=== PATIENT | male | born 1950 | race Caucasian/White ===

== ENCOUNTER 2018-08-14 12:30 | Outpatient (CLI) | payer MEDICARE ==
[~2018-08-14] VITALS: Ht 185.4 cm; Wt 89.8 kg
[~2018-08-14 12:30] MED LIST: AMIT25TA9 PO; AMLO10TA82 PO; AMT10T PO; ATRV10T PO; B/P; HYDR1TAB PO; LSNP10T PO
[2018-08-14] MEDS ORDERED: AMLO10TA6 PO (12:34)
[2018-08-14] MEDS ORDERED: POTA10TA10 PO (12:34)
[2018-08-14] MEDS ORDERED: ROSU5TAB PO (12:34)
== END 2018-08-14 12:35 | disposition home or self-care (01) ==
LOC: PREOP 12:30
PROVIDERS: ATTEND Surgery
DX: Z01.818 Encounter for other preprocedural examination (principal)

== ENCOUNTER 2018-08-20 07:56 | Day surgery (SDC) | payer MEDICARE, OTHER ==
[~2018-08-20] VITALS: Ht 185.4 cm; Wt 89.8 kg
[~2018-08-20 07:56] MED LIST changes: +AMLO10TA6 PO; +POTA10TA10 PO; +ROSU5TAB PO
[2018-08-20] MEDS ORDERED: LACTATED RINGERS 1,000 ML IV STA (08:11)
[2018-08-20 08:25] VITALS: BP 166/109
--- NOTE | 2018-08-20 08:40 | Progress Note-Pre Operative ---
Pre-Operative Progress Note H&P Reviewed The H&P was reviewed, patient examined and no changes noted. Date Seen by Provider: Aug 20, 2018 Time Seen by Provider: 08:39 Date H&P Reviewed: Aug 20, 2018 Time H&P Reviewed: 08:39 Pre-Operative Diagnosis: positive cologuard test VELASQUEZ VARGAS DO Aug 20, 2018 08:40
[2018-08-20] MEDS ORDERED: PROPOFOL INJECTION 50 ML IV ONE (09:17)
[2018-08-20] MEDS ORDERED: MIDAZOLAM 2 MG/2 ML (VERSED) VIAL ONE (09:18)
--- NOTE | 2018-08-20 10:14 | Progress Note-Post Operative ---
Post-Operative Progess Note Surgeon (s)/System Specialist (s) Surgeon VELASQUEZ VARGAS DO System Specialist: na Pre-Operative Diagnosis positive cologuard test Post-Operative Diagnosis cecal mass, colon polyps Procedure & Operative Findings Date of Procedure 08/20/18 Procedure Performed/Findings colonoscopy c cold bx's cecal mass, hot bx polypectomy x 2 ascending colon, snare polypectomy x 1 sigmoid Anesthesia Type per E LEARNING SPECIALIST Estimated Blood Loss Estimated blood loss (mL): none Specimens/Packing Specimens Removed cecal mass x3 pieces (cold bx) ascending colon polyps x2 (hot bx) sigmoid colon polyp x2 pieces (snare bx) VELASQUEZ VARGAS DO Aug 20, 2018 10:14
[2018-08-20 10:15] VITALS: BP 155/77
--- NOTE | 2018-08-20 10:18 | Discharge Inst-Simple/Standard ---
Discharge Inst-Standard Patient Instructions/Follow Up Plan of Care/Instructions/FU: 2 weeks Trini Activity as Tolerated: Yes Discharge Diet: Regular Diet VELASQUEZ VARGAS DO Aug 20, 2018 10:18
[2018-08-20 10:45] VITALS: BP 155/88
--- NOTE | 2018-08-20 13:06 | Anesthesia-General Post-Op ---
MAC Patient Condition Mental Status/LOC: Same as Preop Cardiovascular: Satisfactory Nausea/Vomiting: Absent Respiratory: Satisfactory Pain: Controlled Complications: Absent Post Op Complications Complications None Follow Up Care/Instructions Patient Instructions None needed. Anesthesiology Discharge Order Discharge Order Patient is doing well, no complaints, stable vital signs, no apparent adverse anesthesia problems. No complications reported per nursing. CHRISTIAN DEL CID CRNA Aug 20, 2018 13:06
--- NOTE | 2018-08-20 14:48 | OPERATIVE REPORT ---
DATE OF SERVICE: 08/20/2018 PREOPERATIVE DIAGNOSIS: Positive Cologuard test. POSTOPERATIVE DIAGNOSES: Cecal mass and colon polyps. PROCEDURES: Colonoscopy with cold biopsy of cecal mass, hot biopsy polypectomy x 2 ascending colon and snare polypectomy x 1 sigmoid colon. ANESTHESIA: Per PROFESSOR OF MUSIC. SURGEON: Velasquez Feliz DO. ESTIMATED BLOOD LOSS: None. COMPLICATIONS: None. INDICATIONS: The patient is a 68-year-old male with positive Cologuard test. He was explained risks and benefits of procedure and wished to proceed with procedure. Consent was signed in chart. DESCRIPTION OF PROCEDURE: The patient was taken to the endoscopy suite and placed in a left lateral recumbent position. Timeout was performed. Digital rectal exam was performed. There were no palpable polyps, masses or ulcerations. The scope was inserted in the rectum and advanced all the way to the cecum with minimal difficulty. Prep was adequate. Multiple small polyps were present within the cecum and a small cecal mass was present taking up approximately a fourth of the colonic wall. A cold biopsy of this was obtained. Scope was then slowly retracted back in the ascending colon and there were 2 small polyps, which a hot biopsy polypectomy was performed. Scope was continuously retracted back. There were no polyps, masses or ulcerations within the transverse colon or descending colon. Within the sigmoid colon, a small polyp was present, which a snare polypectomy was performed. A specimen was obtained for pathology. Scope was continued to be slowly retracted back into the rectum, where it was also retroflexed noting no other pathology. Scope was returned to its normal position, slowly withdrawn until completely removed. The patient tolerated the procedure well without any complications. He was taken to the recovery room in stable condition. RECOMMENDATIONS: The patient will follow up on pathology in two weeks to discuss. Due to small cecal mass, it is unable to be removed by an endoscopic procedure; therefore, we will discuss right colectomy. Job ID: [id number] DocumentID: [id number] Dictated Date: 08/20/2018 10:21:50 Coil Winder Repair Date: 08/20/2018 14:47:46 Dictated By: VELASQUEZ FELIZ DO
== END 2018-08-20 10:55 | disposition home or self-care (01) ==
LOC: ENDO 07:56
PROVIDERS: ATTEND Surgery
DX: D12.0 Benign neoplasm of cecum (principal); D12.2 Benign neoplasm of ascending colon; D12.5 Benign neoplasm of sigmoid colon; Z83.79 Family history of other diseases of the digestive system; I10 Essential (primary) hypertension; Z87.891 Personal history of nicotine dependence; Z79.899 Other long term (current) drug therapy
CPT/HCPCS: 88305

== ENCOUNTER 2018-09-20 08:45 | Outpatient (CLI) | payer MEDICARE, OTHER ==
[~2018-09-20] VITALS: Ht 185.4 cm; Wt 88.0 kg
[2018-09-20 09:08] VITALS: BP 150/92
[2018-09-20 09:50] LABS: BASOPHILS # (AUTO) 0.1 10^3/uL (0.0-0.1); BASOPHILS % (AUTO) 1 % (0-10); EOSINOPHILS # (AUTO) 0.2 10^3/uL (0.0-0.3); EOSINOPHILS % (AUTO) 3 % (0-10); HEMATOCRIT 48 % (40-54); HEMOGLOBIN 16.5 G/DL (13.3-17.7); LYMPHOCYTES # (AUTO) 0.9 X 10^3 (1.0-4.0); LYMPHOCYTES % (AUTO) 15 % (12-44); MEAN CORPUSCULAR HEMOGLOBIN 30 PG (25-34); MEAN CORPUSCULAR HGB CONC 34 G/DL (32-36); MEAN CORPUSCULAR VOLUME 86 FL (80-99); MEAN PLATELET VOLUME 11.1 FL (7.4-10.4); MONOCYTES # (AUTO) 0.5 X 10^3 (0.0-1.0); MONOCYTES % (AUTO) 8 % (0-12); NEUTROPHILS # (AUTO) 4.4 X 10^3 (1.8-7.8); NEUTROPHILS % (AUTO) 73 % (42-75); PLATELET COUNT 205 10^3/uL (130-400); RED BLOOD COUNT 5.57 10^6/uL (4.35-5.85); RED CELL DISTRIBUTION WIDTH 14.1 % (10.0-14.5)
[2018-09-20 10:17] LABS: BUN/CREATININE RATIO 16; CALCIUM 9.4 MG/DL (8.5-10.1); CARBON DIOXIDE 24 MMOL/L (21-32); CHLORIDE 109 MMOL/L (98-107); CREATININE SERUM 1.15 MG/DL (0.60-1.30); GFR ESTIMATED > 60; GLUCOSE 91 MG/DL (70-105); POTASSIUM 3.2 MMOL/L (3.6-5.0); SODIUM 146 MMOL/L (135-145)
[2018-09-26] MEDS ORDERED: DOCU-143 PO (07:34)
[2018-09-26] MEDS ORDERED: ACHD5005 PO (07:34)
== END 2018-09-20 09:40 | disposition home or self-care (01) ==
LOC: PREOP 08:45
PROVIDERS: ATTEND Surgery
DX: Z01.812 Encounter for preprocedural laboratory examination (principal); Z11.2 Encounter for screening for other bacterial diseases; Z86.010 Personal history of colon polyps
CPT/HCPCS: 36415; 80048; 85025; 87081

== ENCOUNTER 2018-09-23 08:02 | Inpatient (IN) | payer MEDICARE, OTHER ==
[~2018-09-23] VITALS: Ht 185.4 cm; Wt 84.1 kg
[2018-09-23 08:05] VITALS: BP 148/106
[2018-09-23] MEDS: LACTATED RINGERS 1,000 ML IV PRN ×2 (08:15→11:23)
[2018-09-23] MEDS ORDERED: ROCURONIUM 10 MG/ML 5 ML SYRINGE IV ONE (08:25)
[2018-09-23] MEDS ORDERED: LIDOCAINE PF 2% 5 ML (XYLOCAINE) VIAL ONE (08:25)
[2018-09-23] MEDS ORDERED: ONDANSETRON 4 MG/2 ML (SDV) Z0FRAN ONE (08:25)
[2018-09-23] MEDS ORDERED: SEVOFLURANE (ULTANE) 15 ML INHAL SOLN ONE ×7 (08:25→11:51)
[2018-09-23] MEDS ORDERED: proPOfol 200 MG/20 ML (DIPRIVAN) VIAL IV ONE (08:25)
[2018-09-23] MEDS ORDERED: MIDAZOLAM 2 MG/2 ML (VERSED) VIAL ONE (08:26)
[2018-09-23] MEDS ORDERED: fentaNYL INJECTION 100 MCG/2 ML AMP ONE (08:26)
[2018-09-23] MEDS ORDERED: metroNIDAZOLE 500MG/100ML IVPB 100 ML IV ONE (08:30)
[2018-09-23] MEDS ORDERED: ceFAZolin 2 GM IV Premixed 50 ML IV ONE (08:30)
[2018-09-23] MEDS ORDERED: LIDOCAINE 1% INJ 20 ML 20 ML VIAL ONE (09:59)
[2018-09-23] MEDS ORDERED: BUPIVACAINE 0.5% 30 ML (SENSORCAINE) VIAL ONE (09:59)
--- NOTE | 2018-09-23 10:14 | Progress Note-Pre Operative ---
Pre-Operative Progress Note H&P Reviewed The H&P was reviewed, patient examined and no changes noted. Date Seen by Provider: Sep 23, 2018 Time Seen by Provider: 10:13 Date H&P Reviewed: Sep 23, 2018 Time H&P Reviewed: 10:13 Pre-Operative Diagnosis: tubulovillous adenoma right colon VELASQUEZ VARGAS DO Sep 23, 2018 10:14
[2018-09-23] MEDS ORDERED: NEOSTIGMINE 1 MG/ML 5 ML SYRINGE ONE (11:47)
[2018-09-23] MEDS ORDERED: GLYCOPYRROLATE 0.2 MG/ML (ROBINUL) 2 ML VIAL ONE (11:47)
--- NOTE | 2018-09-23 12:02 | Progress Note-Post Operative ---
Post-Operative Progess Note Surgeon (s)/Saw Grinder (s) Surgeon VELASQUEZ VARGAS DO Saw Grinder: Dr. Watts Pre-Operative Diagnosis tubulovillous adenoma right colon Post-Operative Diagnosis same Procedure & Operative Findings Date of Procedure 09/23/18 Procedure Performed/Findings lap hand assist right colon resection with mobilization hepatic flexure Anesthesia Type gen Estimated Blood Loss Estimated blood loss (mL): min Specimens/Packing Specimens Removed right colon VELASQUEZ VARGAS DO Sep 23, 2018 12:02
[2018-09-23] MEDS ORDERED: morphine INJ 10 MG/ML 1ML (SYR OR VIAL) IVP ONE (12:15)
[2018-09-23] MEDS ORDERED: ONDANSETRON 4 MG/2 ML (SDV) Z0FRAN IVP PRN ×2 (12:15)
[2018-09-23 13:05] VITALS: BP 156/86
[2018-09-23] MEDS: LACTATED RINGERS 1,000 ML IV SCH ×2 (13:45→22:30)
[2018-09-23] MEDS: morphine INJ 10 MG/ML 1ML (SYR OR VIAL) IVP PRN (13:45)
--- NOTE | 2018-09-23 13:56 | Physical Therapy Progress Note ---
Therapy Progress Note Patient just returned from surgery and is medicated and unsafe to participate with PT. PT to begin in NIKA Lamar PT Sep 23, 2018 13:56
[2018-09-23] MEDS ORDERED: FLU QUADRIvalent (5+ YOA) 2018-2019 (AFLURIA) 0.5 ML IM ONE (14:00)
[2018-09-23 16:00] VITALS: BP 148/78
--- NOTE | 2018-09-23 18:29 | Consultation ---
History of Present Illness History of Present Illness Patient Consulted On(tez/time) 09/23/18 18:26 Time Seen by Provider: 18:26 History of Present Illness Patient has history of tubovillous adenoma. Patient had surgery today. Patient has a history of hyperlipidemia, hypokalemia, and hypertension. Patient taking fluids tonight. Patient's potassium 3.2 this morning we'll check tomorrow Allergies and Home Medications Allergies Coded Allergies: No Known Drug Allergies (Unverified , 09/23/18) Home Medications Amlodipine Besylate 10 Mg Tablet, 10 MG PO DAILY, (Reported) Potassium Chloride 10 Meq Tablet.er, 20 MEQ PO DAILY, (Reported) take 2 (10MEQ) tabs Rosuvastatin Calcium 5 Mg Tablet, 5 MG PO HS, (Reported) Patient Home Medication List Home Medication List Reviewed: Yes Past Wfppund-Umferh-Zuymqx Hx Patient Social History Alcohol Use: Denies Use Recreational Drug Use: No Smoking Status: Former Smoker Former Smoker, Quit: Sep 23, 1975 Recent Foreign Travel: No Contact w/Someone Who Travel: No Recent Infectious Disease Expo: No Recent Hopitalizations: No Immunizations Up To Date Date of Pneumonia Vaccine: Sep 19, 2016 Seasonal Allergies Seasonal Allergies: Yes Past Medical History Surgeries: Yes (umb hernia) Tonsillectomy Respiratory: No Cardiac: Yes Neurological: No Reproductive Disorders: No Genitourinary: No Gastrointestinal: Yes Polyps Musculoskeletal: Yes Arthritis Endocrine: No HEENT: Yes (glasses) Cataract Cancer: No Psychosocial: No Integumentary: No Blood Disorders: No Family Medical History Cardiovascular disease G8 BROTHER Dementia 19 MOTHER Diabetes mellitus G8 BROTHER FH: Crohn's disease 19 FATHER Hypertension G8 BROTHER Myocardial infarction G8 BROTHER Thyroid disease 19 MOTHER Review of Systems-General Constitutional: no symptoms reported EENTM: no symptoms reported Respiratory: no symptoms reported Cardiovascular: no symptoms reported Gastrointestinal: no symptoms reported Genitourinary: no symptoms reported Physical Exam-General Problems Physical Exam Vital Signs Vital Signs - First Documented 09/23/18 08:05 Temp 98.2 Pulse 70 Resp 18 B/P (MAP) 148/106 (120) Pulse Ox 96 O2 Delivery Room Air Capillary Refill : General Appearance: WD/WN, no apparent distress Eyes: Bilateral Eye Normal Inspection HEENT: normal ENT inspection Neck: non-tender, full range of motion, normal inspection Respiratory: chest non-tender, lungs clear, normal breath sounds, no respiratory distress, no accessory muscle use Cardiovascular: regular rate, rhythm, no murmur Gastrointestinal: non tender, soft Assessment/Plan Assessment/Plan Admission Diagnosis/Plan Tubulovillous adenoma. Hypertension. Hyperlipidemia. Hypokalemia Admission Status: Inpatient Order (span 2 midnights) Reason for Inpatient Admission: Abdominal surgery DONAVON RUIZ DO Sep 23, 2018 18:29
[2018-09-23] MEDS ORDERED: POTASSIUM CL 10MEQ/50ML IVPB 50 ML IV NR (18:30)
[2018-09-23] MEDS: metroNIDAZOLE 500MG/100ML IVPB 100 ML IV SCH (18:47)
[2018-09-23] MEDS: ceFAZolin 2 GM IV Premixed 50 ML IV SCH (18:48)
[2018-09-23 20:00] VITALS: BP 147/78
--- NOTE | 2018-09-23 21:03 | OPERATIVE REPORT ---
DATE OF SERVICE: 09/23/2018 PREOPERATIVE DIAGNOSIS: Tubulovillous adenoma, right colon. POSTOPERATIVE DIAGNOSIS: Tubulovillous adenoma, right colon. PROCEDURE: Laparoscopic assisted right colon resection with mobilization of hepatic flexure. SURGEON: Antonio Feliz DO WIC SITE COORDINATOR: Dr. Watts, who assisted in retraction, dissection and closure. ANESTHESIA: General. ESTIMATED BLOOD LOSS: Minimal. COMPLICATIONS: None. INDICATIONS: The patient is a 68-year-old male who had a positive Cologuard test. He had endoscopy demonstrating a large tubulovillous adenomatous polyp just at the cecum. This was unresectable endoscopically. The patient understands risks and benefits of procedure and wished to proceed with procedure. Consent was signed in the chart. DESCRIPTION OF PROCEDURE: The patient was taken to the operating suite, was prepped and draped in sterile fashion. Surgical pause was performed. A 10 mm incision was made just above the umbilicus. Dissection was taken down to the fascia, which was then scored and opened and a balloon trocar was inserted into the abdomen. Under direct visualization of the laparoscope, a 5 mm trocar was placed in suprapubic region and the cecum and right colon was identified. At this point, the 12 mm trocar site was then converted to a hand assist port. A 12 mm trocar site was then placed in the subxiphoid region. The right colon was grasped, elevated and using a spatula cautery, the right colon was mobilized along the right line of Toldt. This was continued to be mobilized around the hepatic flexure, also at times having to use the LigaSure. Once this mobilization was performed, the colon was able to be brought out through the hand port site. The distal ileum was dissected around and a linear 75 blue stapler was then fired across the ileum. The right colon was dissected around distal to the palpable polyp and a linear staple blue load was then fired across the colon. The LigaSure was then used to take the mesentery removing the specimen. The anastomosis was created between the distal ileum and the colon in a [id number] fashion using a 3-0 Vicryl for crotch stitch and reinforcing the staple line. At this point, the mesentery defect was closed using 3-0 Vicryl in a running fashion. This was then placed back into the abdomen. Copious amounts of irrigation was used to irrigate and suction. The anastomosis was patent and bowel had viable appearance. The hand assist port fascia was then closed using 1-0 looped PDS. The abdomen was then reinflated. The fascia closure was adequate. Hemostasis had been achieved. The abdomen was then irrigated and suctioned again. The abdomen was then desufflated. The 12 mm trocar was then removed. The fascia was closed using a 0 Vicryl with an Endo Close. The abdomen was then desufflated. The 5 mm trocar was then removed. The skin was then closed using lacho. The abdomen was then washed and dried, sterile bandages were applied. The patient tolerated procedure well without any complications, taken to recovery room in stable condition. Job ID: [id number] DocumentID: [id number] Dictated Date: 09/23/2018 12:14:57 Care Manager Date: 09/23/2018 21:02:12 Dictated By: DO RADHA YI
[2018-09-24] VITALS (7 sets, daily range): BP systolic 139–185; BP diastolic 69–90
[2018-09-24] MEDS: morphine INJ 10 MG/ML 1ML (SYR OR VIAL) IVP PRN ×2 (00:01→04:44)
[2018-09-24] MEDS: ceFAZolin 2 GM IV Premixed 50 ML IV SCH (02:11)
[2018-09-24] MEDS: metroNIDAZOLE 500MG/100ML IVPB 100 ML IV SCH (03:07)
[2018-09-24 06:52] LABS: HEMOGLOBIN 14.3 G/DL (13.3-17.7); MEAN PLATELET VOLUME 11.4 FL (7.4-10.4); RED BLOOD COUNT 4.77 10^6/uL (4.35-5.85); RED CELL DISTRIBUTION WIDTH 14.1 % (10.0-14.5); WHITE BLOOD COUNT 12.6 10^3/uL (4.3-11.0)
[2018-09-24 07:11] LABS: CREATININE SERUM 1.53 MG/DL (0.60-1.30)
--- NOTE | 2018-09-24 07:48 | Progress Note (SOAP) ---
Subjective Time Seen by a Provider: 07:45 Subjective/Events-last exam Feeling good today. Patient not having any complaints. Patient taking fluids. Patient not passing any gas. Patient has Alamo catheter in Objective Exam Vital Signs Date Time Temp Pulse Resp B/P (MAP) Pulse Ox O2 Delivery O2 Flow Rate FiO2 09/24/18 04:00 99.2 59 20 139/72 (94) 92 Room Air 09/24/18 00:00 99.4 55 20 148/72 (97) 93 Room Air 09/23/18 21:00 Room Air 09/23/18 20:00 99.5 78 18 147/78 (101) 92 Room Air 09/23/18 19:07 95 Room Air 09/23/18 16:00 98.2 64 18 148/78 (101) 91 Room Air 09/23/18 13:05 97.2 59 16 156/86 (109) 92 Room Air 09/23/18 09:00 92 Room Air 09/23/18 08:05 98.2 70 18 148/106 (120) 96 Room Air I & O 09/24/18 06:59 Intake Total 2930 ml Output Total 1150 ml Balance 1780 ml Capillary Refill : General Appearance: No Apparent Distress HEENT: Normal ENT Inspection Neck: Full Range of Motion, Normal Inspection Respiratory: Chest Non Tender, Normal Breath Sounds, No Accessory Muscle Use Cardiovascular: Regular Rate, Rhythm, No Murmur Gastrointestinal: non tender, soft Results Lab Laboratory Tests 09/24/18 06:25 Laboratory Tests 09/24/18 06:25: White Blood Count 12.6H, Red Blood Count 4.77, Hemoglobin 14.3, Hematocrit 42, Mean Corpuscular Volume 87, Mean Corpuscular Hemoglobin 30, Mean Corpuscular Hemoglobin Concent 34, Red Cell Distribution Width 14.1, Platelet Count 193, Mean Platelet Volume 11.4H, Sodium Level 140, Potassium Level 3.0L, Chloride Level 105, Carbon Dioxide Level 23, Anion Gap 12, Blood Urea Nitrogen 27H, Creatinine 1.53H, Estimat Glomerular Filtration Rate 45, BUN/Creatinine Ratio 18 , Glucose Level 139H, Calcium Level 9.0 Assessment/Plan Assessment/Plan Assess & Plan/Chief Complaint Tubulovillous adenoma. Hypertension. Hyperlipidemia. Hypokalemia. . 09/24/18 Tubulovillous adenoma. Hypertension. Hyperlipidemia. Hypokalemia Patient feeling good today Clinical Quality Measures DVT/VTE Risk/Contraindication: Risk Factor Score Per Nursin RFS Level Per Nursing on Admit: 2=Moderate DONAVON RUIZ DO Sep 24, 2018 07:48
[2018-09-24] MEDS ORDERED: PANTOPRAZOLE 40 MG (PROTONIX) VIAL IVP SCH (09:00)
--- NOTE | 2018-09-24 09:27 | Physical Therapy Evaluation ---
PT Evaluation-General Medical Diagnosis Admission Date Sep 23, 2018 at 08:02 Medical Diagnosis: Polyps Onset Date: Sep 23, 2018 Therapy Diagnosis Therapy Diagnosis: General Weakness Height/Weight Height (Feet): 6 Height (Inches): 1.00 Weight (Pounds): 185 Weight (Ounces): 8.0 Precautions Precautions/Isolations: Fall Prevention, Standard Precautions Weight Bear Status Right Lower Extremity: Right Full Weight Bearing Left Lower Extremity: Left Full Weight Bearing Referral Physician: Antonio Feliz DO Reason for Referral: Evaluation/Treatment Medical History Pertinent Medical History: COPD, HTN Current History bowel resection Reviewed History: Yes Social History Home: Single Level Current Living Status: Spouse Entry Into Home: Stairs With Railing, Stairs Without Railing PT Steps Into Home: 2 PT Steps Inside Home: 0 Prior/Core FIM Prior Level of Function Therapy Code Descriptions/Definitions Functional [place] Measure: 0=Not Assessed/NA 4=Minimal Assistance 1=Total Assistance 5=Supervision or Setup 2=Maximal Assistance 6=Modified [place] 3=Moderate Assistance 7=Complete [place] Therapy Quality Codes: 6 Independent with activity with or without an assistive device 5 Patient requires set up or clean up by helper. Patient completes activity by themselves 4 Supervision or touching assist (CGA). [place] provide cues , steadying assist 3 The helper provides less than half the effort to complete the activity 2 The helper provides more than half the effort to complete the activity 1 Dependent. The helper does all the effort to complete an activity 7 Patient refused to complete or attempt activity 9 The patient did not perform the activity before the current illness or injury 88 Not attempted due to Medical conditions or safety concerns Functional Abilities and Goals: Independent: Patient completed the activities by him/herself, with or without an assistive device, with no assistance from a helper. Needed Some Help: Patient needed partial assistance from another person to complete activities. Dependent: A helper completed the activities for the patient. Unknown: Not Applicable: Bed Mobility: 7 Transfers (B,C,W/C) (FIM): 7 Gait: 7 Stairs: 7 Indoor Mobility (Ambulation): Independent Stairs: Independent Prior Devices Use: None PT Evaluation-Current Subjective Pt awake in bed watching tv when PT arrived. Pt agreed to PT evaluation. Pain Numeric Pain Scale: 0-No Pain Location: No Pain Reported Location Body Site: Abdomen Pain Description: Acute Objective Patient Orientation: Normal For Age Problem Solving: Good Attachments: Alamo Catheter ROM/Strength ROM Upper Extremities WNL ROM Lower Extremities WNL Strength Upper Extremities WNL Strength Lower Extremities WNL Integumentary/Posture Bowel Incontinence: No Bladder Incontinence: Alamo Cath Neuromuscular (Tone, Coordination, Reflexes) Gross motor coordination intact Sensory Vision: Wears Glasses Hearing: Functional Sensation Right Upper Extremit: Intact Sensation Left Upper Extremity: Intact Sensation Right Lower Extremit: Intact Sensation Left Lower Extremity: Intact Transfers Therapy Code Descriptions/Definitions Functional [place] Measure: 0=Not Assessed/NA 4=Minimal Assistance 1=Total Assistance 5=Supervision or Setup 2=Maximal Assistance 6=Modified [place] 3=Moderate Assistance 7=Complete [place] Transfers (B, C, W/C) (FIM): 7 Scootin Rollin Supine to/from Sit: 7 Sit to/from Stand: 7 Gait Mode of Locomotion: Walk Anticipated Mode of Locomotion: Walk Gait (FIM): 7 Distance (FIM): 3=150 ft Distance: 150' Gait Level of Assist: 7 Gait Assistive Device: None Balance Sitting Static: Good Sitting Dynamic: Good Standing Static: Good Standing Dynamic: Good Assessment/Needs Pt is independent with bed/mat mobility and gait. Patient gross motor strength is WNL and is fine to be up on his own in his room. Patient and nursing staff instructed to ambulate PRN in hallway and take his time with increasing activity. Rehab Potential: Good PT Plan Treatment/Plan Treatment Plan: Discontinue PT, goals met Treatment Plan: Other Treatment Duration: Sep 24, 2018 Frequency: 1 time per week Estimated Hrs Per Day: .25 hour per day Patient and/or Family Agrees t: Yes Time/GCodes Time In: 820 Time Out: 840 Total Billed Treatment Time: 20 Total [facility] [address] [facility] N[facility]SELL PT Sep 24, 2018 09:27
[2018-09-24] MEDS: KCL 10 MEQ TAB (MICRO K) PO SCH (11:53)
[2018-09-24] MEDS: amLODIPine 10 MG (NORVASC) TAB PO SCH (11:53)
--- NOTE | 2018-09-24 13:12 | Anesthesia-General Post-Op ---
General Patient Condition Mental Status/LOC: Same as Preop Cardiovascular: Satisfactory Nausea/Vomiting: Absent Respiratory: Satisfactory Pain: Controlled Complications: Absent Post Op Complications Complications None Follow Up Care/Instructions Patient Instructions None needed. Anesthesia/Patient Condition Patient Condition Patient is doing well, no complaints, stable vital signs, no apparent adverse anesthesia problems. SHYANNE MONTERROSO DO Sep 24, 2018 13:12
--- NOTE | 2018-09-24 16:37 | Progress Note ---
Subjective Date Seen by a Provider: Sep 24, 2018 Time Seen by a Provider: 16:35 Subjective/Events-last exam patient pain controlled. no flatus or bm. tolerating clears. denies n/v fever sweats chills shortness of breath or chest pain. Objective Exam Vital Signs Date Time Temp Pulse Resp B/P (MAP) Pulse Ox O2 Delivery O2 Flow Rate FiO2 09/24/18 16:27 99.6 59 18 139/71 (93) 91 Room Air 09/24/18 12:00 99.4 70 18 143/69 (93) 91 09/24/18 09:00 Room Air 09/24/18 08:00 99.6 57 18 143/72 (95) 91 Room Air 09/24/18 04:00 99.2 59 20 139/72 (94) 92 Room Air 09/24/18 00:00 99.4 55 20 148/72 (97) 93 Room Air 09/23/18 21:00 Room Air 09/23/18 20:00 99.5 78 18 147/78 (101) 92 Room Air 09/23/18 19:07 95 Room Air I & O 09/24/18 07:00 Intake Total 3230 ml Output Total 1300 ml Balance 1930 ml Capillary Refill : General Appearance: No Apparent Distress HEENT: Normal ENT Inspection Neck: Full Range of Motion, Normal Inspection Respiratory: Chest Non Tender, Normal Breath Sounds, No Accessory Muscle Use Cardiovascular: Regular Rate, Rhythm Gastrointestinal: soft (incisions no signs of infection), tenderness ( incisional) Neurologic/Psychiatric: Alert, Oriented x3, No Motor/Sensory Deficits Skin: Warm/Dry Lymphatic: No Adenopathy Results Lab Laboratory Tests 09/24/18 06:25: White Blood Count 12.6H, Red Blood Count 4.77, Hemoglobin 14.3, Hematocrit 42, Mean Corpuscular Volume 87, Mean Corpuscular Hemoglobin 30, Mean Corpuscular Hemoglobin Concent 34, Red Cell Distribution Width 14.1, Platelet Count 193, Mean Platelet Volume 11.4H, Sodium Level 140, Potassium Level 3.0L, Chloride Level 105, Carbon Dioxide Level 23, Anion Gap 12, Blood Urea Nitrogen 27H, Creatinine 1.53H, Estimat Glomerular Filtration Rate 45, BUN/Creatinine Ratio 18 , Glucose Level 139H, Calcium Level 9.0 Assessment/Plan Assessment/Plan Assessment/Plan Tubulovillous adenoma s/p right colon resection Hypokalemia. IS pain control ambulate liz martinez [place] Clinical Quality Measures DVT/VTE Risk/Contraindication: Risk Factor Score Per Nursin RFS Level Per Nursing on Admit: 2=Moderate VELASQUEZ VARGAS DO Sep 24, 2018 16:37
[2018-09-24] MEDS ORDERED: morphine INJ 4 MG/ML 1 ML (VIAL/SYRINGE) IVP PRN (20:15)
[2018-09-24] MEDS: ROSUVASTATIN 5 MG (CRESTOR) TABLET PO SCH (21:08)
[2018-09-25 04:00] VITALS: BP 158/75
[2018-09-25] MEDS: KCL 10 MEQ TAB (MICRO K) PO SCH (05:25)
[2018-09-25 06:21] LABS: HEMOGLOBIN 15.8 G/DL (13.3-17.7); MEAN PLATELET VOLUME 11.6 FL (7.4-10.4); RED BLOOD COUNT 5.31 10^6/uL (4.35-5.85); RED CELL DISTRIBUTION WIDTH 14.1 % (10.0-14.5); WHITE BLOOD COUNT 15.7 10^3/uL (4.3-11.0)
[2018-09-25 06:41] LABS: CALCIUM 9.4 MG/DL (8.5-10.1); CREATININE SERUM 1.31 MG/DL (0.60-1.30); POTASSIUM 2.9 MMOL/L (3.6-5.0)
--- NOTE | 2018-09-25 07:54 | Progress Note (SOAP) ---
Subjective Time Seen by a Provider: 07:52 Subjective/Events-last exam Patient feeling better today. Patient had a good night sleep. Blood pressure coming down a little. Potassium 2.9 replaced. Patient did not pass any gas yet. White blood cell count elevated. GFR improved to 54 now from 45 Objective Exam Vital Signs Date Time Temp Pulse Resp B/P (MAP) Pulse Ox O2 Delivery O2 Flow Rate FiO2 09/25/18 04:00 99.5 71 16 158/75 (102) 90 Room Air 09/24/18 23:13 98.7 68 17 176/90 (118) 92 Room Air 09/24/18 21:00 Room Air 09/24/18 19:55 99.3 68 18 185/87 (119) 93 Room Air 09/24/18 16:27 99.6 59 18 139/71 (93) 91 Room Air 09/24/18 12:00 99.4 70 18 143/69 (93) 91 09/24/18 09:00 Room Air 09/24/18 08:00 99.6 57 18 143/72 (95) 91 Room Air I & O 09/25/18 07:00 Intake Total 2480 ml Output Total 4025 ml Balance -1545 ml Capillary Refill : General Appearance: No Apparent Distress, WD/WN HEENT: Normal ENT Inspection Neck: Full Range of Motion, Normal Inspection Respiratory: Lungs Clear, No Accessory Muscle Use, No Respiratory Distress Cardiovascular: Regular Rate, Rhythm, No Murmur Gastrointestinal: other (Tender but soft) Results Lab Laboratory Tests 09/25/18 06:00 Laboratory Tests 09/25/18 06:00: White Blood Count 15.7H, Red Blood Count 5.31, Hemoglobin 15.8, Hematocrit 46, Mean Corpuscular Volume 87, Mean Corpuscular Hemoglobin 30, Mean Corpuscular Hemoglobin Concent 34, Red Cell Distribution Width 14.1, Platelet Count 236, Mean Platelet Volume 11.6H, Sodium Level 145, Potassium Level 2.9L, Chloride Level 108H, Carbon Dioxide Level 24, Anion Gap 13, Blood Urea Nitrogen 23H, Creatinine 1.31H, Estimat Glomerular Filtration Rate 54, BUN/Creatinine Ratio 18 , Glucose Level 111H, Calcium Level 9.4 Assessment/Plan Assessment/Plan Assess & Plan/Chief Complaint Tubulovillous adenoma. Hypertension. Hyperlipidemia. Hypokalemia. . 09/24/18 Tubulovillous adenoma. Hypertension. Hyperlipidemia. Hypokalemia Patient feeling good today. . 09/25/18. Tubulovillous adenoma. Hypertension. Hyperlipidemia. Hypokalemia. Patient had a good night sleep. Patient feeling better. Patient not passing gas yet Clinical Quality Measures DVT/VTE Risk/Contraindication: Risk Factor Score Per Nursin RFS Level Per Nursing on Admit: 2=Moderate DONAVON RUIZ DO Sep 25, 2018 07:54
[2018-09-25 07:59] VITALS: BP 159/79
[2018-09-25] MEDS: amLODIPine 10 MG (NORVASC) TAB PO SCH (09:04)
[2018-09-25] MEDS: LACTATED RINGERS 1,000 ML IV SCH (09:04)
[2018-09-25] MEDS: POTASSIUM CL 10MEQ/50ML IVPB 50 ML IV SCH ×4 (09:05→12:08)
[2018-09-25] MEDS ORDERED: HYDROcodone/APAP 5 MG/325 MG (LORTAB) TAB PO PRN (09:15)
[2018-09-25] MEDS ORDERED: FLU QUADRIvalent (5+ YOA) 2018-2019 (AFLURIA) 0.5 ML IM ONE (10:11)
[2018-09-25 12:00] VITALS: BP 161/88
[2018-09-25 16:00] VITALS: BP 168/87
[2018-09-25 20:00] VITALS: BP 169/86
--- NOTE | 2018-09-25 20:35 | Progress Note ---
Subjective Date Seen by a Provider: Sep 25, 2018 Time Seen by a Provider: 09:00 Subjective/Events-last exam Patient doing well. pain controlled. bm this morning. feeling better. denies n/v fever sweats chills shortness of breath or chest pain. tolerating diet. potassium low, being replaced. Objective Exam Vital Signs Date Time Temp Pulse Resp B/P (MAP) Pulse Ox O2 Delivery O2 Flow Rate FiO2 09/25/18 16:00 98.9 65 18 168/87 (114) 92 Room Air 09/25/18 12:00 97.0 73 20 161/88 (112) 94 Room Air 09/25/18 09:00 95 Room Air 09/25/18 07:59 97.3 60 18 159/79 (105) 94 Room Air 09/25/18 04:00 99.5 71 16 158/75 (102) 90 Room Air 09/24/18 23:13 98.7 68 17 176/90 (118) 92 Room Air 09/24/18 21:00 Room Air I & O 09/25/18 07:00 Intake Total 2480 ml Output Total 4025 ml Balance -1545 ml Capillary Refill : General Appearance: No Apparent Distress, WD/WN HEENT: Normal ENT Inspection Neck: Full Range of Motion, Normal Inspection Respiratory: Lungs Clear, No Accessory Muscle Use, No Respiratory Distress Cardiovascular: Regular Rate, Rhythm, No Murmur Gastrointestinal: other (Tender but soft) Neurologic/Psychiatric: Alert, Oriented x3, No Motor/Sensory Deficits Skin: Warm/Dry Lymphatic: No Adenopathy Results Lab Laboratory Tests 09/25/18 06:00: White Blood Count 15.7H, Red Blood Count 5.31, Hemoglobin 15.8, Hematocrit 46, Mean Corpuscular Volume 87, Mean Corpuscular Hemoglobin 30, Mean Corpuscular Hemoglobin Concent 34, Red Cell Distribution Width 14.1, Platelet Count 236, Mean Platelet Volume 11.6H, Sodium Level 145, Potassium Level 2.9L, Chloride Level 108H, Carbon Dioxide Level 24, Anion Gap 13, Blood Urea Nitrogen 23H, Creatinine 1.31H, Estimat Glomerular Filtration Rate 54, BUN/Creatinine Ratio 18 , Glucose Level 111H, Calcium Level 9.4 09/25/18 19:54: Assessment/Plan Assessment/Plan Assessment/Plan Tubulovillous adenoma. Hypertension. Hyperlipidemia. Hypokalemia. K being replaced diet advanced repeat labs in am home soon IS ambulate Clinical Quality Measures DVT/VTE Risk/Contraindication: Risk Factor Score Per Nursin RFS Level Per Nursing on Admit: 2=Moderate VELASQUEZ VARGAS DO Sep 25, 2018 20:34
[2018-09-25] MEDS: ROSUVASTATIN 5 MG (CRESTOR) TABLET PO SCH (20:53)
[2018-09-26 00:06] VITALS: BP 147/79
[2018-09-26 03:54] VITALS: BP 160/95
[2018-09-26] MEDS: KCL 10 MEQ TAB (MICRO K) PO SCH (05:42)
[2018-09-26 06:31] LABS: HEMOGLOBIN 14.1 G/DL (13.3-17.7); MEAN PLATELET VOLUME 11.1 FL (7.4-10.4); RED BLOOD COUNT 4.76 10^6/uL (4.35-5.85); RED CELL DISTRIBUTION WIDTH 14.1 % (10.0-14.5); WHITE BLOOD COUNT 8.7 10^3/uL (4.3-11.0)
[2018-09-26 06:45] LABS: BUN/CREATININE RATIO 16; CALCIUM 8.8 MG/DL (8.5-10.1); CARBON DIOXIDE 26 MMOL/L (21-32); CHLORIDE 107 MMOL/L (98-107); CREATININE SERUM 0.98 MG/DL (0.60-1.30); GFR ESTIMATED > 60; GLUCOSE 89 MG/DL (70-105); POTASSIUM 2.6 MMOL/L (3.6-5.0); SODIUM 145 MMOL/L (135-145)
[2018-09-26] MEDS ORDERED: ACHD5005 PO ×2 (07:34)
[2018-09-26] MEDS ORDERED: DOCU-143 PO ×2 (07:34)
--- NOTE | 2018-09-26 07:37 | Discharge Inst-Simple/Standard ---
Discharge Inst-Standard Discharge Medications New, Converted or Re-Newed RX: RX on Chart Patient Instructions/Follow Up Plan of Care/Instructions/FU: 2 weeks Trini Activity as Tolerated: No Discharge Diet: Regular Diet Other Inst to Patient Follow up Appt: Make appointment for [address] Arango Instructions: No lifting greater than 10 pounds. No strenuous activity. May shower, no tub bath or soaking. Use incentive spirometer at home as directed. No Smoking Skin/Wound Care: May remove bandages. Keep clean and dry. Symptoms to Report: Appetite Changes, Extremity Discoloration, Numbness/Tingling, Swelling Increased , Bleeding Excessive, Eyesight Changes, Pain Increased, Urine Color Change, Constipation(Persistent), Fever over 101 degree F, Pain/Pressure in chest, Urinating Difficulty, Cough Up/Vomit Blood, Heart Beat Irreg/Pounding, Pain/ Pressure in jaw, Vaginal Bleeding Increase, Cramps in feet or legs, Lightheadedness, Pain/Pressure in shoulder, Diarrhea(Persistent), Memory Changes Suddenly, Questions/Concerns, Weight gain consecutive days, Dizziness/ Fainting, Nausea/Vomiting, Shortness of Breath, Weight gain over 2 pounds If questions or concerns contact your physician Or seek help at emergency department. VELASQUEZ VARGAS DO Sep 26, 2018 07:37
[2018-09-26] MEDS: POTASSIUM CL 10MEQ/50ML IVPB 50 ML IV SCH ×8 (07:48→18:33)
--- NOTE | 2018-09-26 08:31 | Progress Note (SOAP) ---
Subjective Time Seen by a Provider: 08:28 Subjective/Events-last exam Patient had a whole bunch diarrhea yesterday. Patient's potassium 2.6. Patient to receive 40 mEq of KCl this a.m. Diarrhea better. To recheck potassium at 2 p.m. Hope to send home today. Patient feeling much better except for the diarrhea yesterday Objective Exam Vital Signs Date Time Temp Pulse Resp B/P (MAP) Pulse Ox O2 Delivery O2 Flow Rate FiO2 09/26/18 03:54 98.4 64 18 160/95 (116) 91 Room Air 09/26/18 00:06 98.6 66 18 147/79 (101) 90 Room Air 09/25/18 21:00 Room Air 09/25/18 20:00 99.0 69 18 169/86 (113) 94 Room Air 09/25/18 16:00 98.9 65 18 168/87 (114) 92 Room Air 09/25/18 12:00 97.0 73 20 161/88 (112) 94 Room Air 09/25/18 09:00 95 Room Air I & O 09/26/18 07:00 Intake Total 3145 ml Balance 3145 ml Capillary Refill : General Appearance: No Apparent Distress, WD/WN HEENT: Normal ENT Inspection Neck: Full Range of Motion, Normal Inspection Respiratory: Chest Non Tender, Lungs Clear, No Accessory Muscle Use, No Respiratory Distress Cardiovascular: Regular Rate, Rhythm, No Murmur Gastrointestinal: non tender, soft Results Lab Laboratory Tests 09/25/18 19:54 09/26/18 06:05 Laboratory Tests 09/25/18 19:54: Potassium Level 2.6L 09/26/18 06:05: Potassium Level 2.6L, White Blood Count 8.7, Red Blood Count 4.76, Hemoglobin 14.1, Hematocrit 41, Mean Corpuscular Volume 87, Mean Corpuscular Hemoglobin 30 , Mean Corpuscular Hemoglobin Concent 34, Red Cell Distribution Width 14.1, Platelet Count 183, Mean Platelet Volume 11.1H, Sodium Level 145, Chloride Level 107, Carbon Dioxide Level 26, Anion Gap 12, Blood Urea Nitrogen 16, Creatinine 0.98, Estimat Glomerular Filtration Rate > 60, BUN/Creatinine Ratio 16, Glucose Level 89, Calcium Level 8.8 Assessment/Plan Assessment/Plan Assess & Plan/Chief Complaint Tubulovillous adenoma. Hypertension. Hyperlipidemia. Hypokalemia. . 09/24/18 Tubulovillous adenoma. Hypertension. Hyperlipidemia. Hypokalemia Patient feeling good today. . 09/25/18. Tubulovillous adenoma. Hypertension. Hyperlipidemia. Hypokalemia. Patient had a good night sleep. Patient feeling better. Patient not passing gas yet. . 09/26/18. Tubo villus adenoma. Hypokalemia. Diarrhea. Hypertension. Hyperlipidemia. Patient's diarrhea subsided this a.m. Potassium 2.6 and will recheck at 2 p.m. today Clinical Quality Measures DVT/VTE Risk/Contraindication: Risk Factor Score Per Nursin RFS Level Per Nursing on Admit: 2=Moderate DONAVON RUIZ DO Sep 26, 2018 08:31
[2018-09-26] MEDS: amLODIPine 10 MG (NORVASC) TAB PO SCH (08:34)
[2018-09-26 08:42] VITALS: BP 164/86
[2018-09-26 12:16] VITALS: BP 169/88
[2018-09-26] MEDS: LACTATED RINGERS 1,000 ML IV SCH (15:12)
--- NOTE | 2018-09-26 16:28 | Progress Note ---
Subjective Date Seen by a Provider: Sep 26, 2018 Time Seen by a Provider: 09:00 Subjective/Events-last exam patient pain controlled with oral pain med. having bowel function. tolerating diet. patient having some diarrhea but improving. potassium low but being replaced. denies n/v fever sweats chills shortness of breath or chest pain. Objective Exam Vital Signs Date Time Temp Pulse Resp B/P (MAP) Pulse Ox O2 Delivery O2 Flow Rate FiO2 09/26/18 12:16 98.1 64 16 169/88 (115) 93 Room Air 09/26/18 09:00 Room Air 09/26/18 08:42 99.2 70 16 164/86 (112) 93 Room Air 09/26/18 03:54 98.4 64 18 160/95 (116) 91 Room Air 09/26/18 00:06 98.6 66 18 147/79 (101) 90 Room Air 09/25/18 21:00 Room Air 09/25/18 20:00 99.0 69 18 169/86 (113) 94 Room Air I & O 09/26/18 07:00 Intake Total 3145 ml Balance 3145 ml Capillary Refill : General Appearance: No Apparent Distress, WD/WN HEENT: Normal ENT Inspection Neck: Full Range of Motion, Normal Inspection Respiratory: Chest Non Tender, Lungs Clear, No Accessory Muscle Use, No Respiratory Distress Cardiovascular: Regular Rate, Rhythm, No Murmur Gastrointestinal: non tender (no signs of infection), soft Neurologic/Psychiatric: Alert, Oriented x3, No Motor/Sensory Deficits Skin: Warm/Dry Lymphatic: No Adenopathy Results Lab Laboratory Tests 09/25/18 19:54: Potassium Level 2.6L 09/26/18 06:05: Potassium Level 2.6L, White Blood Count 8.7, Red Blood Count 4.76, Hemoglobin 14.1, Hematocrit 41, Mean Corpuscular Volume 87, Mean Corpuscular Hemoglobin 30 , Mean Corpuscular Hemoglobin Concent 34, Red Cell Distribution Width 14.1, Platelet Count 183, Mean Platelet Volume 11.1H, Sodium Level 145, Chloride Level 107, Carbon Dioxide Level 26, Anion Gap 12, Blood Urea Nitrogen 16, Creatinine 0.98, Estimat Glomerular Filtration Rate > 60, BUN/Creatinine Ratio 16, Glucose Level 89, Calcium Level 8.8 09/26/18 14:10: Potassium Level 2.9L Assessment/Plan Assessment/Plan Assessment/Plan Tubulovillous adenoma s/p right colon resection with mobilization hepatic flexure Hypertension. Hyperlipidemia. Hypokalemia. Diarrhea diet as tolerates replace potassium likely home today with close follow up for potassium discussed with Dr. Arango who is in agreement and will see in office tomorrow for repeating labs and replacing potassium patient in agreement with plan. Clinical Quality Measures DVT/VTE Risk/Contraindication: Risk Factor Score Per Nursin RFS Level Per Nursing on Admit: 2=Moderate VELASQUEZ VARGAS DO Sep 26, 2018 16:28
[2018-09-26 16:30] VITALS: BP 164/83
[2018-09-26 19:50] VITALS: BP 164/83
--- NOTE | 2018-09-27 04:53 | DISCHARGE SUMMARY ---
DATE OF SERVICE: ADMITTING DIAGNOSIS: Tubulovillous adenoma, right colon, status post right colon resection with mobilization of hepatic flexure. DISCHARGE DIAGNOSES: Tubulovillous adenoma, status post right colon resection with mobilization of hepatic flexure, hypertension, hyperlipidemia, hypokalemia, and diarrhea. ADMITTING PHYSICIAN: Velasquez Feliz DO CONSULTING PHYSICIAN: Dr. Arango for assistance in medical management. HOSPITAL COURSE: The patient is a 68-year-old male who had previously colonoscopy that had a tubulovillous adenoma in the right colon that was unresectable by endoscopic procedure. The patient was discussed risks and benefits of having a laparoscopic hand-assisted right colon resection who wished to proceed with this procedure and on 09/23/2018, underwent procedure. Postoperatively, the patient was admitted to the hospital. He was started on clear liquid diet and once the bowel function returned, the patient's diet was advanced. The patient throughout hospital course was hypokalemic, which was replaced. He is still hypokalemic upon discharge, but it is improving and being replaced and we discussed from a medical standpoint this could be followed as an outpatient for he does have chronic hypokalemia. The patient's pain is under control with oral pain medications at this time. He is tolerating diet. The patient discharged home on 09/26/2018. Please see the computer for discharge medications and instructions. Job ID: [id number] DocumentID: [id number] Dictated Date: 09/26/2018 16:31:52 Running Instructor Date: 09/27/2018 04:39:52 Dictated By: VELASQUEZ FELIZ DO
== END 2018-09-26 19:47 | disposition home or self-care (01) | DRG 331 ==
LOC: 4TH 08:02 → SURG 08:03 → 4TH 13:05
PROVIDERS: ADMIT Surgery; ATTEND Surgery
PROC: 0DTF0ZZ Resection of Right Large Intestine, Open Approach (ICD-10-PCS; principal; 2018-09-23 10:13)
DX: D12.0 Benign neoplasm of cecum (principal); E87.6 Hypokalemia; I10 Essential (primary) hypertension; E78.5 Hyperlipidemia, unspecified; M19.91 Primary osteoarthritis, unspecified site; J30.2 Other seasonal allergic rhinitis; R19.7 Diarrhea, unspecified; Z87.891 Personal history of nicotine dependence
CPT/HCPCS: 36415; 80048; 84132; 85027; 86850; 86900; 86901; 88307; 90471; 90686; 94664

== ENCOUNTER → 2018-09-27 | Outpatient (CLI) | payer MEDICARE, OTHER ==
[~2018-09-27] MED LIST changes: +ACHD5005 PO; +DOCU-143 PO
== END ==
LOC: LAB 08:10
PROVIDERS: ATTEND Family Medicine
DX: E87.6 Hypokalemia (principal)
CPT/HCPCS: 36415; 84132

== ENCOUNTER 2018-09-28 08:07 | Outpatient (RCR) | payer MEDICARE, OTHER ==
[~2018-09-28 08:07] MED LIST changes: -AMLO10TA6 PO; +AMLO10TA7 PO
[2018-09-28 08:37] LABS: POTASSIUM 3.1 MMOL/L (3.6-5.0)
[2018-09-29 08:39] LABS: POTASSIUM 3.3 MMOL/L (3.6-5.0)
[2018-09-30 08:42] LABS: POTASSIUM 3.2 MMOL/L (3.6-5.0)
== END 2018-12-27 | disposition home or self-care (01) ==
LOC: LAB 08:07
PROVIDERS: ATTEND Family Medicine
DX: E87.6 Hypokalemia (principal)
CPT/HCPCS: 36415; 80051

== ENCOUNTER 2019-11-27 05:32 | Outpatient (CLI) | payer MEDICARE, OTHER ==
[~2019-11-27] VITALS: Ht 185.5 cm; Wt 93.2 kg
[2019-11-27] MEDS ORDERED: POTA10CA43 PO (12:48)
== END 2019-11-27 12:55 | disposition home or self-care (01) ==
LOC: PREOP 05:32
PROVIDERS: ATTEND Surgery
DX: Z01.818 Encounter for other preprocedural examination (principal)

== ENCOUNTER 2019-12-04 06:08 | Day surgery (SDC) | payer MEDICARE, OTHER ==
[2019-12-04] VITALS (14 sets, daily range): BP systolic 135–166; BP diastolic 90–104
[~2019-12-04] VITALS: Ht 185.5 cm; Wt 93.2 kg
[~2019-12-04 06:08] MED LIST changes: +POTA10CA43 PO
[2019-12-04] MEDS: LACTATED RINGERS 1,000 ML IV PRN ×2 (06:48→08:40)
[2019-12-04] MEDS ORDERED: LIDOCAINE PF 2% 5 ML (XYLOCAINE) VIAL ONE (06:57)
[2019-12-04] MEDS ORDERED: fentaNYL INJECTION 100 MCG/2 ML AMP ONE (06:57)
[2019-12-04] MEDS ORDERED: proPOfol 200 MG/20 ML (DIPRIVAN) VIAL IV ONE (06:57)
[2019-12-04] MEDS ORDERED: ONDANSETRON 4 MG/2 ML (SDV) Z0FRAN ONE (06:57)
[2019-12-04] MEDS ORDERED: SEVOFLURANE (ULTANE) 15 ML INHAL SOLN ONE ×2 (06:57→08:46)
[2019-12-04] MEDS ORDERED: DEXAMETHASONE 10 MG/ML (DECADRON) 1 ML VIAL ONE (06:57)
[2019-12-04] MEDS ORDERED: ROCURONIUM 10 MG/ML 5 ML SYRINGE IV ONE (06:58)
[2019-12-04] MEDS ORDERED: NEOSTIGMINE 3 MG/3 ML VIAL ONE (06:58)
[2019-12-04] MEDS ORDERED: GLYCOPYRROLATE 0.2 MG/ML (ROBINUL) 2 ML VIAL ONE ×2 (06:58→08:09)
[2019-12-04] MEDS ORDERED: MIDAZOLAM 2 MG/2 ML (VERSED) VIAL ONE (06:58)
[2019-12-04 06:59] LABS: BASOPHILS # (AUTO) 0.1 10^3/uL (0.0-0.1); BASOPHILS % (AUTO) 1 % (0-10); EOSINOPHILS # (AUTO) 0.2 10^3/uL (0.0-0.3); EOSINOPHILS % (AUTO) 2 % (0-10); HEMATOCRIT 45 % (40-54); HEMOGLOBIN 15.1 G/DL (13.3-17.7); LYMPHOCYTES # (AUTO) 1.1 X 10^3 (1.0-4.0); LYMPHOCYTES % (AUTO) 17 % (12-44); MEAN CORPUSCULAR HEMOGLOBIN 29 PG (25-34); MEAN CORPUSCULAR HGB CONC 34 G/DL (32-36); MEAN CORPUSCULAR VOLUME 86 FL (80-99); MEAN PLATELET VOLUME 10.6 FL (7.4-10.4); MONOCYTES # (AUTO) 0.6 X 10^3 (0.0-1.0); MONOCYTES % (AUTO) 9 % (0-12); NEUTROPHILS # (AUTO) 4.8 X 10^3 (1.8-7.8); NEUTROPHILS % (AUTO) 71 % (42-75); PLATELET COUNT 239 10^3/uL (130-400); RED CELL DISTRIBUTION WIDTH 13.8 % (10.0-14.5); WHITE BLOOD COUNT 6.7 10^3/uL (4.3-11.0)
[2019-12-04] MEDS ORDERED: ceFAZolin 2 GM/50 ML NS 50 ML IV ONE (07:00)
[2019-12-04] MEDS ORDERED: BUP/EPI 0.5% 1:200,000 (SENSORCAINE) 30 ML VIAL ONE (07:14)
[2019-12-04 07:16] LABS: CALCIUM 9.2 MG/DL (8.5-10.1); CREATININE SERUM 1.47 MG/DL (0.60-1.30); POTASSIUM 3.1 MMOL/L (3.6-5.0)
[2019-12-04] MEDS ORDERED: ONDANSETRON 4 MG/2 ML (SDV) Z0FRAN IVP PRN (08:15)
[2019-12-04] MEDS ORDERED: MEPERIDINE (DEMEROL) INJ 50 MG/ML IVP ONE (08:15)
[2019-12-04] MEDS ORDERED: morphine INJ 10 MG/ML 1ML (SYR OR VIAL) IVP ONE (08:15)
[2019-12-04] MEDS ORDERED: fentaNYL INJECTION 100 MCG/2 ML AMP IVP ONE (08:15)
[2019-12-04] MEDS ORDERED: morphine INJ 10 MG/ML 1ML (SYR OR VIAL) ONE (08:21)
[2019-12-04] MEDS ORDERED: BUPIVACAINE 0.5% 30 ML (SENSORCAINE) VIAL ONE (08:34)
--- NOTE | 2019-12-04 09:24 | Progress Note-Post Operative ---
Post-Operative Progess Note Surgeon (s)/Customer Expert (s) Surgeon VELASQUEZ VARGAS DO Customer Expert: Dr. Watts Pre-Operative Diagnosis incisional hernia Post-Operative Diagnosis incarcerated incisional hernia Procedure & Operative Findings Date of Procedure 12/04/19 Procedure Performed/Findings lap incarcerated incisional hernia repair with echo ventralight mesh 6x 8 inch Anesthesia Type gen Estimated Blood Loss Estimated blood loss (mL): min Specimens/Packing Specimens Removed hernia contents/sack VELASQUEZ VARGAS DO Dec 04, 2019 09:24
[2019-12-04] MEDS ORDERED: DOCU-143 PO (09:25)
[2019-12-04] MEDS ORDERED: ACHD5005 PO (09:25)
--- NOTE | 2019-12-04 09:26 | Discharge Inst-Simple/Standard ---
Discharge Inst-Standard Discharge Medications New, Converted or Re-Newed RX: RX on Chart Patient Instructions/Follow Up Plan of Care/Instructions/FU: 2-3 weeks Trini Activity as Tolerated: Yes Discharge Diet: Regular Diet Other Inst to Patient Follow up Appt: Make appointment for 2-3 week. Instructions: No lifting greater than 10 pounds. No strenuous activity. May shower in 24 hours, no tub bath or soaking. Use incentive spirometer at home as directed. No Smoking Skin/Wound Care: May remove bandages in 24 hours. Symptoms to Report: Appetite Changes, Extremity Discoloration, Numbness/Tingling, Swelling Increased, Bleeding Excessive, Eyesight Changes, Pain Increased, Urine Color Change, Constipation(Persistent), Fever over 101 degree F, Pain/Pressure in chest, Urinating Difficulty, Cough Up/Vomit Blood, Heart Beat Irreg/Pounding, Pain/Pressure in jaw, Vaginal Bleeding Increase, Cramps in feet or legs, Lightheadedness, Pain/Pressure in shoulder, Diarrhea(Persistent), Memory Changes Suddenly, Questions/Concerns, Weight gain consecutive days, Dizziness/Fainting, Nausea/Vomiting, Shortness of Breath, Weight gain over 2 pounds If questions or concerns contact your physician Or seek help at emergency department. VELASQUEZ VARGAS DO Dec 04, 2019 09:26
[2019-12-04] MEDS ORDERED: HYDROcodone/APAP 5 MG/325 MG (LORTAB) TAB PO ONE (10:30)
--- NOTE | 2019-12-05 01:52 | OPERATIVE REPORT ---
DATE OF SERVICE: 12/04/2019 PREOPERATIVE DIAGNOSIS: Incisional hernia. POSTOPERATIVE DIAGNOSIS: Incarcerated incisional hernia. PROCEDURE: Laparoscopic incarcerated incisional hernia repair. SURGEON: Velasquez Feliz DO CLINICAL SERVICES CONSULTANT: Dr. Watts, assisted in retraction, dissection and closure. ANESTHESIA: General. ESTIMATED BLOOD LOSS: Minimal. COMPLICATIONS: None. INDICATIONS: The patient is a 69-year-old male with incisional hernia. He understands risks and benefits of procedure and wished to proceed with procedure. Consent was signed in the chart. DESCRIPTION OF PROCEDURE: The patient was taken to the operating suite, prepped and draped in sterile fashion. Surgical pause was performed. Local anesthetic was infiltrated before incision. An incision was made in the left upper quadrant and cautery used to dissect down to the fascia, which was then scored. The muscle was then divided and the posterior fascia and peritoneum was then entered. A balloon trocar was inserted and pneumoperitoneum was achieved. Omentum was incarcerated up through the hernia in a few spots with the hernia having cheese appearance. A 5 mm trocar was then placed in the right lower quadrant and a 5 mm trocar was placed in the left lower quadrant, both under direct visualization of the laparoscope. A LigaSure and graspers were used to reduce the hernia contents. With the hernia defects being larger, we made a small incision on the abdominal wall at the hernia site. The hernia sac was then dissected off. The abdomen was entered, removing the hernia sac. The fascia was then mobilized and the fascial defect was then closed using 1-0 looped PDS. The abdomen was then reinsufflated and an Echo Ventralight 6 x 8 inch mesh that was inserted in the abdomen before closure. The balloon was then insufflated and using SecureStrap Tacker circumferentially, the mesh was attached to the abdominal wall with lower pressures being mmHg. Once the circumferential tacking was performed, the balloon was then removed through the 12 mm trocar site. The SecureStrap Tacker was then used to make an inner crown. The mesh had good overlap of the hernia defect. The abdomen was then desufflated, the trocars were removed. The fascial defect at the 12 mm trocar was then closed using 0 Vicryl in a [id number] fashion. The skin was then closed with lacho. The abdomen was then washed and dried and sterile bandages were applied. The patient tolerated the procedure well without any complications. He was taken to recovery room in stable condition. Job ID: [id number] DocumentID: [id number] Dictated Date: 12/04/2019 21:20:15 Manager Community Development Date: 12/05/2019 01:51:51 Dictated By: VELASQUEZ FELIZ DO
== END 2019-12-04 12:15 | disposition home or self-care (01) ==
LOC: SDC 06:08
PROVIDERS: ATTEND Surgery
DX: K43.0 Incisional hernia with obstruction, without gangrene (principal); I10 Essential (primary) hypertension; E78.5 Hyperlipidemia, unspecified; Z87.891 Personal history of nicotine dependence; Z79.899 Other long term (current) drug therapy; Z79.891 Long term (current) use of opiate analgesic
CPT/HCPCS: 36415; 80048; 85025; 87081; 88302; 94664

== ENCOUNTER → 2021-05-11 | Outpatient (CLI) | payer MEDICARE, OTHER ==
[~2021-05-11] MED LIST changes: +AMLO-251 PO; -AMLO10TA7 PO
== END ==
LOC: LABNPT 04:36
PROVIDERS: ATTEND Family Medicine
DX: Z20.822 Contact with and (suspected) exposure to COVID-19 (principal)
CPT/HCPCS: 87635

== ENCOUNTER 2022-10-10 05:38 | Outpatient (CLI) | payer MEDICARE, OTHER ==
[~2022-10-10] VITALS: Ht 188 cm; Wt 88.6 kg
[2022-10-10] MEDS ORDERED: POLY17PO6 PO (15:14)
[2022-10-10] MEDS ORDERED: LISI20TA26 PO (15:19)
[2022-10-10] MEDS ORDERED: MTP25TSR PO (15:19)
== END 2022-10-10 15:25 ==
LOC: PREOP 05:38
PROVIDERS: ATTEND Surgery
DX: Z01.818 Encounter for other preprocedural examination (principal); Z12.11 Encounter for screening for malignant neoplasm of colon

== ENCOUNTER 2022-10-17 08:15 | Day surgery (SDC) | payer MEDICARE, OTHER ==
[~2022-10-17] VITALS: Ht 188 cm; Wt 88.6 kg
[~2022-10-17 08:15] MED LIST changes: +LISI20TA26 PO; +MTP25TSR PO; +POLY17PO6 PO
[2022-10-17] MEDS ORDERED: LACTATED RINGERS 1,000 ML IV STA (08:32)
[2022-10-17] MEDS ORDERED: PROPOFOL INJECTION 50 ML IV ONE (08:36)
[2022-10-17 08:50] VITALS: BP 162/96
--- NOTE | 2022-10-17 09:42 | Discharge Inst-Simple/Standard ---
Discharge Inst-Standard Patient Instructions/Follow Up Plan of Care/Instructions/FU: Please follow-up with Dr. Feliz in 2 weeks in outpatient clinic Activity as Tolerated: Yes Discharge Diet: Regular Diet VELASQUEZ FELIZ DO Oct 17, 2022 09:41
[2022-10-17 09:45] VITALS: BP 129/67
[2022-10-17 09:50] VITALS: BP 119/71
[2022-10-17 10:05] VITALS: BP 120/86
--- NOTE | 2022-10-17 10:26 | Anesthesia-General Post-Op ---
MAC Patient Condition Mental Status/LOC: Same as Preop Cardiovascular: Satisfactory Nausea/Vomiting: Absent Respiratory: Satisfactory Pain: Controlled Complications: Absent Post Op Complications Complications None Follow Up Care/Instructions Patient Instructions None needed. Anesthesiology Discharge Order Discharge Order Patient is doing well, no complaints, stable vital signs, no apparent adverse anesthesia problems. No complications reported per nursing. CHRISTIAN DEL CID CRNA Oct 17, 2022 10:26
[2022-10-17 10:28] VITALS: BP 120/86
--- NOTE | 2022-10-17 13:46 | OPERATIVE REPORT ---
DATE OF SERVICE: 10/17/2022 PREOPERATIVE DIAGNOSIS: History of polyps. POSTOPERATIVE DIAGNOSES: Colon polyps, diverticulosis. PROCEDURE: Colonoscopy with hot biopsy polypectomy x2. SURGEON: Velasquez Feliz DO ANESTHESIA: Per [employer] MANAGER. ESTIMATED BLOOD LOSS: None. COMPLICATIONS: None. INDICATIONS: The patient is a 72-year-old male with history of polyp with dysplasia, which he had a colon resection for. He understands the risks and benefits of procedure and wishes to proceed. Consent was signed in chart. DESCRIPTION OF PROCEDURE: The patient was taken to endoscopy suite, placed in left lateral recumbent position. Timeout was performed. Digital rectal exam was performed. No palpable polyps, masses or ulcerations. Scope inserted in the rectum and advanced all the way to the ileocolonic anastomosis. No polyps, masses, or ulcerations. Scope was slowly retracted back. No polyps, masses, ulcerations in the remainder of the ascending, transverse, descending colon. Some diverticulosis, starting in the sigmoid colon. In the sigmoid colon, a polyp was present, which hot biopsy polypectomy was performed. Scope was then continued slowly retracted back into the rectum where a small polyp was present, which hot biopsy polypectomy was performed. Scope was retroflexed, noting no other pathology. Scope was returned to its normal position, slowly withdrawn until completely removed. The patient tolerated the procedure well. There were no complications, taken to recovery room in stable condition. RECOMMENDATIONS: The patient would likely benefit from a repeat colonoscopy in 3 years. Any issues before that be seen at that time. Would recommend high fiber diet. Further recommendations pending biopsy results. Job ID: [id number] DocumentID: [id number] Dictated Date: 10/17/2022 09:42:43 Application Design Engineer Date: 10/17/2022 13:44:00 Dictated By: VELASQUEZ FELIZ DO
== END 2022-10-17 10:27 | disposition home or self-care (01) ==
LOC: ENDO 08:15
PROVIDERS: ATTEND Surgery
DX: Z12.11 Encounter for screening for malignant neoplasm of colon (principal); D12.5 Benign neoplasm of sigmoid colon; D12.8 Benign neoplasm of rectum; K57.30 Diverticulosis of large intestine without perforation or abscess without bleeding
CPT/HCPCS: 88305

== ENCOUNTER → 2022-10-18 | Outpatient (CLI) | payer MEDICARE, OTHER | LOC: CARD 13:00 | PROVIDERS: ATTEND Family Medicine | DX: R00.2 Palpitations (principal) | CPT/HCPCS: 93225; 93226 ==

== ENCOUNTER 2022-11-07 12:55 | Outpatient (CLI) | payer MEDICARE, OTHER | END 2022-11-07 13:45 | LOC: SLEEP 12:55 | PROVIDERS: ATTEND Internal Medicine Cardiovascular Disease | DX: G47.33 Obstructive sleep apnea (adult) (pediatric) (principal); I10 Essential (primary) hypertension; I49.9 Cardiac arrhythmia, unspecified | CPT/HCPCS: G0399 ==

== ENCOUNTER → 2022-11-07 | Outpatient (CLI) | payer MEDICARE, OTHER ==
[~2022-11-07] MED LIST changes: -POTA10CA43 PO; +POTA10CA44 PO
== END ==
LOC: CARD 13:21
PROVIDERS: ATTEND Internal Medicine Cardiovascular Disease
DX: I11.9 Hypertensive heart disease without heart failure (principal); I34.0 Nonrheumatic mitral (valve) insufficiency
CPT/HCPCS: 93306

== ENCOUNTER → 2022-11-08 | Outpatient (CLI) | payer MEDICARE, OTHER ==
[~2022-11-08] MED LIST changes: +CATHETER FLUSH 10 ML SYR IVP PRN; +REGADENOSON 0.4 MG/5 ML SYR (LEXISCAN) IV ONE
[2022-11-08 10:20] VITALS: BP 167/91
--- NOTE | 2022-11-08 13:58 | Cardiology Stress Test Report ---
Stress Test Report Date of Procedure/Referring: Date of Procedure: Nov 08, 2022 PCP Quentin Ruiz DO Admitting Physician Admitting Physician: Attending Physician: Kunal Gonzáles MD Indications: HTN Baseline Heart Rate: 55 Baseline Blood Pressure: Blood Pressure Systolic: 167 Blood Pressure Diastolic: 91 Vital Signs Date Time Temp Pulse Resp B/P (MAP) Pulse Ox O2 Delivery O2 Flow Rate FiO2 11/08/22 10:20 59 167/91 (116) Baseline Vital Signs Vital Signs Date Time Temp Pulse Resp B/P (MAP) Pulse Ox O2 Delivery O2 Flow Rate FiO2 11/08/22 10:20 59 167/91 (116) Baseline EKG: Baseline EKG: NSR Summary: After explaining the procedure and details to the patient, he signed the consent and was brought to the stress nuclear laboratory. Patient exercised on standard Ras protocol, EKG, heart rate and blood pressure were monitored continuously, resting and stress doses of radio tracer were injected, imaging was acquired and reviewed in the short axis, horizontal long axis and vertical long axis views Patient was able to exercise for a total of 3.30 minutes on Ras protocol, METs 5.2 Maximum heart rate 139 Maximum blood pressure 212/120 Stress EKG, Minimal nondiagnostic changes Recovery EKG, Return to baseline TID: 0.94 SSS: 8 SDS: 4 EF: 55 Conclusion: 1. Fair exercise tolerance for a total of 3 minutes and 30 seconds on standard Ras protocol, 5.2 METS achieving 93% of maximal expected heart rate 2. Appropriate heart rate response to exercise with frequent premature ventricular contractions and ventricular bigeminy noted during test 3. Severe hypertensive response to exercise with peak blood pressure 212/120 return to baseline during recovery 4. Diaphragmatic attenuation with reversible ischemia involving the apex and inferoapical segment 5. Normal left ventricular size, ejection fraction 55% Copy Copies To 1: QUENTIN RUIZ BASHAR J MD Nov 08, 2022 13:58
== END ==
LOC: CARD 07:41
PROVIDERS: ATTEND Internal Medicine Cardiovascular Disease
DX: I10 Essential (primary) hypertension (principal); I25.10 Atherosclerotic heart disease of native coronary artery without angina pectoris
CPT/HCPCS: 78452; 93017; A9502

== ENCOUNTER 2022-11-22 06:59 | Day surgery (SDC) | payer MEDICARE, OTHER ==
[2022-11-22] VITALS (13 sets, daily range): BP systolic 135–167; BP diastolic 80–141
[~2022-11-22] VITALS: Ht 185.4 cm; Wt 89.9 kg
[~2022-11-22 06:59] MED LIST changes: -CATHETER FLUSH 10 ML SYR IVP PRN; -REGADENOSON 0.4 MG/5 ML SYR (LEXISCAN) IV ONE
[2022-11-22] MEDS ORDERED: NS IV 1000 ML 1,000 ML ONE (07:06)
[2022-11-22] MEDS ORDERED: LIDOCAINE 1% INJ 20 ML VIAL ONE (07:06)
[2022-11-22] MEDS ORDERED: HEParin (CATH LAB) 2,000 ML IV ONE (07:06)
[2022-11-22] MEDS ORDERED: NS IV 1000 ML 1,000 ML IV SCH (07:15)
[2022-11-22 07:43] LABS: HEMATOCRIT 52 % (40-54); HEMOGLOBIN 17.5 g/dL (13.3-17.7); MEAN CORPUSCULAR HEMOGLOBIN 30 pg (25-34); MEAN CORPUSCULAR HGB CONC 33 g/dL (32-36); MEAN CORPUSCULAR VOLUME 90 fL (80-99); MEAN PLATELET VOLUME 11.3 fL (9.0-12.2); PLATELET COUNT 223 10^3/uL (130-400); WHITE BLOOD COUNT 6.1 10^3/uL (4.3-11.0)
--- NOTE | 2022-11-22 07:46 | Diagnostic Imaging Report ---
CHEST 1 VIEW, AP/PA ONLY Indication: Chest pain. Abnormal stress test. Comparison: None available. Findings: Cardiomegaly. There is likely a moderate-sized hiatal hernia. No pleural effusion or pneumothorax. Lungs are clear. Impression: 1. Cardiomegaly without acute process by radiography. Dictated by: Dictated on workstation # [id number]
[2022-11-22 07:59] LABS: ALBUMIN 4.5 GM/DL (3.2-4.5); BILIRUBIN,TOTAL 1.2 MG/DL (0.1-1.0); CALCIUM 10.2 MG/DL (8.5-10.1); CREATININE SERUM 1.65 MG/DL (0.60-1.30); POTASSIUM 3.2 MMOL/L (3.6-5.0); TOTAL PROTEIN 7.8 GM/DL (6.4-8.2)
[2022-11-22] MEDS ORDERED: LORA10TA76 PO (08:04)
[2022-11-22] MEDS ORDERED: OMEG100032 PO (08:04)
[2022-11-22] MEDS ORDERED: ROSU20TA32 PO (08:04)
[2022-11-22] MEDS ORDERED: MULT-1136 PO (08:04)
[2022-11-22 08:12] LABS: INR 0.9 (0.8-1.4); PROTHROMBIN TIME PATIENT 13.1 SEC (12.2-14.7)
[2022-11-22] MEDS ORDERED: fentaNYL INJ 100 MCG/2 ML AMP ONE (08:53)
[2022-11-22] MEDS ORDERED: MIDAZOLAM 5 MG/5 ML (VERSED) VIAL ONE (08:53)
[2022-11-22] MEDS ORDERED: VERAPAMIL 5 MG/2 ML (CALAN) VIAL IV ONE (09:16)
[2022-11-22] MEDS ORDERED: NITRO DRIP 25000 MCG/D5W 250 ML IV ONE (09:16)
[2022-11-22] MEDS ORDERED: HEParin 1000 UNIT/ML (10ML VIAL) FOR BOLUS ONE (09:16)
--- NOTE | 2022-11-22 09:20 | Cardiac Procedure Note-CS/ASA ---
Pre-Procedure Note Pre-Op Procedure Note Date of Available H&P: Nov 09, 2022 Date H&P Reviewed: Nov 22, 2022 Time H&P Reviewed: 09:00 History & Physical: H&P Reviewed, Patient Examed, No changes noted Pre-Operative Diagnosis: CAD Conscious Sedation Pre-Proced Time 09:00 ASA Score 3 For ASA 3 and 4: Consider anesthesia and medical clearance. Also, for patients with a history of failed moderate sedation consider anesthesia. Airway Lungs Heart ASA score ASA 1: a normal healthy patient ASA 2: a patient with a mild systemic disease (mid diabetes, controlled hypertension, obesity ASA 3: a patient with a severe systemic disease that limits activity (angina, COPD, prior Myocardial infarction) ASA 4: a patient with an incapacitating disease that is a constant threat to life (CHF, renal failure) ASA 5: a moribund patient not expected to survive 24 hrs. (ruptured aneurysm) ASA 6: a declared brain- patient whose organs are being harvested. For emergent operations, add the letter E after the classification Mallampati Classification Grade 3 Sedation Plan Analgesia, Amnesia, Plan communicated to team members, Discussed options with patient/fam, Discussed risks with patient/fam The patient is an appropriate candidate to undergo the planned procedure, sedation, and anesthesia. The patient immediately re-assessed prior to indication. ELA PATIÑO MD Nov 22, 2022 09:20
[2022-11-22] MEDS ORDERED: ASPIRIN 325 MG (5 GR) TABLET ONE (10:09)
[2022-11-22] MEDS ORDERED: CLOPIDOGREL 300 MG (PLAVIX) TABLET PO ONE (10:09)
[2022-11-22] MEDS ORDERED: LORATADINE (CLARITIN) 10 MG TAB PO PRN (10:30)
--- NOTE | 2022-11-22 10:36 | Cardiac Cath Report ---
Cardiac Cath Report Physician (s)/Salesperson Handbags (s) Physician ELA PATIÑO MD Pre-Procedure Diagnosis Pre-Procedure Diagnosis: CAD Post-Procedure Note Procedure Start Date: Nov 22, 2022 Name of Procedure: Left heart catheterization Stenting to the LAD Findings/Procedure Note PROCEDURE NOTE: 72-year-old gentleman with coronary artery disease, had an abnormal stress test, scheduled for cardiac catheterization possible PTCA. After explaining the procedure to the patient, all pros and cons were explained, all questions were answered. The patient signed the consent and then he was placed in the cardiac catheterization laboratory. Groin was prepped in SL fashion local anesthesia was used. Sheath placed in the right radial artery, has significantly tortuous brachiocephalic entrance to the aorta. I had difficulty proceeding with a [place] catheter, pressure was measured to the left ventricle but could not engage the coronary system we used Natalie right and Natalie left system to engage. Angiogram was done. Patient has 80% stenosis at the mid LAD. EBU 3.5 guide was used and engaged l eft main with difficulty then I attempted to advance BMW wire without success, used whisper extra-support, advance it to the distal LAD then proceeded with primary stenting using sharda point 2.75 x 18 mm deployed under 14 erik with excellent results, 0% residual stenosis. At the end of the procedure the sheath was removed. Vascular band was used FINDINGS: Hemodynamics LV 123/14, end-diastolic pressure 14 Aorta 125/77 mean of 21 ANATOMY: Left Main is free of obstructive disease Left Anterior Descending is calcified artery with 80% mid LAD stenosis, devine ccessful stenting using 2.75 x 18 mm sharda point stent with 0% residual stenosis, the distal LAD is very small artery with mild stenosis less than 10% Left Circumflex is moderate in size with mild diffuse disease less than 10% Right Coronary Artery is moderate in size with mild disease less than 10% LV Gram was not done, pressure was measured PERCUTANEOUS INTERVENTION: Pre stenosis 80% Post Stenosis 0% Pre MERCEDES flow 2 Post MERCEDES flow 3 Dominance right coronary artery CONCLUSION: 1. 80% stenosis in the mid LAD with successful stenting using sharda point stent 2.75 x 18 mm deployed under 14 erik with excellent results. 0% residual stenosis 2. Otherwise mild to moderate disease in the circumflex and right coronary artery. The distal LAD had more significant disease, the artery is fairly small at the apex level 3. Normal left ventricular end-diastolic pressure DISCUSSION AND RECOMMENDATION: Continue to maximize medical therapy, planning to repeat stress test in 3 to 6 months Anesthesia Type: Conscious Sedation Estimated blood loss (mL): 25 ml Contrast Amount: 37 ml Total Radiation Dose: 686 mGy Post-Procedure Diagnosis Post-operative diagnosis: Coronary artery disease Hypertension Hyperlipidemia Chest pain ELA PATIÑO MD Nov 22, 2022 10:36
[2022-11-22] MEDS ORDERED: PATIENT MAY USE OWN MEDS, ALL MC SCH (11:00)
[2022-11-22] MEDS: NS IV 1000 ML 1,000 ML IV SCH ×2 (12:49→20:30)
[2022-11-22 16:57] LABS: POTASSIUM 2.8 MMOL/L (3.6-5.0)
[2022-11-22 17:05] LABS: MAGNESIUM 2.1 MG/DL (1.6-2.4)
[2022-11-22] MEDS: amLODIPine 10 MG (NORVASC) TAB PO SCH ×2 (17:23→17:30)
[2022-11-22] MEDS ORDERED: KCL 20 MEQ TAB (K-DUR) PO NR (17:30)
[2022-11-22] MEDS ORDERED: ROSUVASTATIN 20 MG (CRESTOR) TABLET PO SCH (21:00)
[2022-11-22] MEDS ORDERED: ROSUVASTATIN 10 MG (CRESTOR) TABLET ONE (21:28)
[2022-11-22] MEDS ORDERED: LOSARTAN 50 MG (COZAAR) TAB PO ONE (21:30)
[2022-11-23] MEDS ORDERED: CLOP75TA28 PO (06:05)
[2022-11-23] MEDS ORDERED: ASPI-1238 PO (06:05)
--- NOTE | 2022-11-23 06:06 | Discharge Inst-Post CATH ---
Discharge Inst-CATH/EP Problems Reviewed?: Yes Post Cardiac Cath/EP D/C Inst Follow Up/Plan Appointment with Dr Gonzáles in 2 weeks <b>CARDIAC CATH/EP PROCEDURE DISCHARGE INSTRUCTIONS</b> ACTIVITY * Go Home directly and rest. * Limit activity of the leg (or wrist if it was used) for 7 days including aerobics, swimming, jogging, bicycling, etc. * Restrict stair-climbing for 7 days if possible, if not, climb up with your non-cath leg, then bring together on the same step. * Avoid lifting, pushing, pulling or excessive movement of the affected extremity for 7 days. * Customary sexual activity may be resumed after 2 days-use caution not to use a position that strains or causes pain to the affected extremity. * No driving for 24 hours. * NO SMOKING. * Avoid straining for bowel movements for 7 days. * Gentle walking on level ground is allowed. * Returning to work will depend on the type of procedure and the results. Your doctor will discuss this with you. CALL YOUR DOCTOR FOR ANY OF THE FOLLOWING: *If bleeding from the puncture site occurs- Apply gentle pressure to site with clean cloth and call your doctor or EMS. * If a knot or lump forms under the skin, increases in size, or causes pain. * If bruising appears to be worsening or moving further down your leg instead of disappearing. * Temperature above 101 F. CARE OF YOUR GROIN INCISION; * Bruising or purple discoloration of the skin near the puncture site is common. * You may shower only, no bathtub bathing for 5 days. Be careful to avoid slipping as your leg may feel stiff. * If a closure device was used on your femoral artery, please see the attached guide regarding care of the device and your leg. * Leave dressing on FOR 24 hours. CARE OF YOUR WRIST INCISION; * Bruising or purple discoloration of the skin near the puncture site is common. * You may shower. * DO NOT submerge wrist. * Leave dressing on FOR 24 hours. ELA GONZÁLES MD Nov 23, 2022 06:06
[2022-11-23 06:11] LABS: HEMATOCRIT 47 % (40-54); HEMOGLOBIN 15.9 g/dL (13.3-17.7); MEAN CORPUSCULAR HEMOGLOBIN 30 pg (25-34); MEAN CORPUSCULAR HGB CONC 34 g/dL (32-36); MEAN CORPUSCULAR VOLUME 89 fL (80-99); MEAN PLATELET VOLUME 11.1 fL (9.0-12.2); PLATELET COUNT 184 10^3/uL (130-400); WHITE BLOOD COUNT 6.7 10^3/uL (4.3-11.0)
[2022-11-23 06:31] LABS: POTASSIUM 2.9 MMOL/L (3.6-5.0)
[2022-11-23 06:32] LABS: CALCIUM 8.9 MG/DL (8.5-10.1)
[2022-11-23 06:36] LABS: CREATININE SERUM 1.26 MG/DL (0.60-1.30)
[2022-11-23 07:52] VITALS: BP 153/103
[2022-11-23] MEDS ORDERED: KCL 20 MEQ TAB (K-DUR) PO ONE (08:00)
[2022-11-23] MEDS: amLODIPine 10 MG (NORVASC) TAB PO SCH (08:39)
[2022-11-23] MEDS ORDERED: KCL 10 MEQ TAB (MICRO K) PO SCH (09:00)
[2022-11-23] MEDS ORDERED: OMEGA 3 (FISH OIL) 1000 MG CAP PO SCH (09:00)
[2022-11-23] MEDS ORDERED: CLOPIDOGREL 75 MG (PLAVIX) TABLET PO SCH (09:00)
[2022-11-23] MEDS ORDERED: ASPIRIN E.C. 81 MG (ECOTRIN) TAB PO SCH (09:00)
[2022-11-23] MEDS ORDERED: MULTIVIT W/MINERALS TAB (THERAGRAN M) PO SCH (09:00)
--- NOTE | 2022-11-23 12:35 | Cardiology Progress Note ---
Subjective Date Seen by Provider: Nov 23, 2022 Time Seen by Provider: 12:34 Subjective/Events-last exam Patient was seen and evaluated, has been doing well. No new complaint Objective-Cardiology Exam Last Set of Vital Signs Vital Signs 11/23/22 11/23/22 11/23/22 03:58 07:52 08:00 Temp 37.0 Pulse 71 Resp 16 B/P (MAP) 153/103 (120) Pulse Ox 95 O2 Delivery Room Air I&O Intake and Output 11/23/22 00:00 Intake Total 1750 ml Output Total 1150 ml Balance 600 ml Intake Oral 750 ml IV Total 1000 ml Output Urine Total 1150 ml General: Alert, Oriented X3, Cooperative HEENT: Atraumatic, PERRLA Neck: Supple, No JVD, No Thyromegaly Lungs: Clear to Auscultation, Normal Air Movement Heart: Regular Rate, Normal S1, Normal S2, No Murmurs Abdomen: Normal Bowel Sounds, Soft, No Tenderness, No Hepatosplenomegaly, No Masses Extremities: No Clubbing, No Cyanosis, No Edema, Normal Pulses, No Tenderness/Swelling Skin: No Rashes, No Breakdown, No Significant Lesion Neuro: Normal Gait, Normal Speech, Strength at 5/5 X4 Ext, Normal Tone, Sensation Intact Psych/Mental Status: Mental Status NL, Mood NL Results Lab Laboratory Tests 11/22/22 16:35 11/23/22 05:54 A/P-Cardiology Admission Diagnosis Coronary artery disease Hypertension Hyperlipidemia Paroxysmal atrial tachycardia Assessment/Plan Coronary artery disease, status post stenting to the LAD Doing well. No new complain Hypertension, controlled, monitor blood pressure Hyperlipidemia, monitor lipids Paroxysmal atrial tachycardia, transient episode of bradycardia. Currently asymptomatic. ELA PATIÑO MD Nov 23, 2022 12:35
== END 2022-11-23 09:53 | disposition home or self-care (01) ==
LOC: CATH 06:59 → ICU 10:30 → CATH 11-23 02:20 → UNDOADMOB 11-23 02:21 → CSD 11-23 02:21 → UNDODISOB 11-23 09:53 → CATH 11-23 09:53
PROVIDERS: ATTEND Internal Medicine Cardiovascular Disease
DX: I25.10 Atherosclerotic heart disease of native coronary artery without angina pectoris (principal); I10 Essential (primary) hypertension; E78.5 Hyperlipidemia, unspecified; I47.20 Ventricular tachycardia, unspecified; E78.2 Mixed hyperlipidemia; I65.23 Occlusion and stenosis of bilateral carotid arteries; Z87.891 Personal history of nicotine dependence; Z95.5 Presence of coronary angioplasty implant and graft
CPT/HCPCS: 71045; 80048; 80053; 80061; 83735; 84132; 85027 ×2; 85610; 85730; 87081; 93005; 93458; C1769 ×2; C1874; C1887; C1894; C9600; 36415

== ENCOUNTER 2022-12-07 19:32 | Outpatient (CLI) | payer MEDICARE, OTHER ==
[~2022-12-07 19:32] MED LIST changes: +ASPI-1238 PO; +CLOP75TA28 PO; +LORA10TA76 PO; +MULT-1136 PO; +OMEG100032 PO; +ROSU20TA32 PO
== END 2022-12-08 06:53 | disposition home or self-care (01) ==
LOC: SLEEP 19:32
PROVIDERS: ATTEND Otolaryngology Otolaryngology/Facial Plastic Surgery
DX: G47.33 Obstructive sleep apnea (adult) (pediatric) (principal)
CPT/HCPCS: 95811

== ENCOUNTER 2023-08-10 11:01 | Emergency (ER) | payer MEDICARE, OTHER ==
[~2023-08-10] VITALS: Ht 182.9 cm; Wt 83.9 kg
[2023-08-10 11:41] LABS: BASOPHILS # (AUTO) 0.1 10^3/uL (0.0-0.1); BASOPHILS % (AUTO) 1 % (0-10); EOSINOPHILS # (AUTO) 0.1 10^3/uL (0.0-0.3); EOSINOPHILS % (AUTO) 2 % (0-10); HEMATOCRIT 48 % (40-54); HEMOGLOBIN 15.7 g/dL (13.3-17.7); LYMPHOCYTES # (AUTO) 0.7 10^3/uL (1.0-4.0); LYMPHOCYTES % (AUTO) 11 % (12-44); MEAN CORPUSCULAR HEMOGLOBIN 30 pg (25-34); MEAN CORPUSCULAR HGB CONC 33 g/dL (32-36); MEAN CORPUSCULAR VOLUME 91 fL (80-99); MEAN PLATELET VOLUME 12.4 fL (9.0-12.2); MONOCYTES # (AUTO) 0.5 10^3/uL (0.0-1.0); MONOCYTES % (AUTO) 8 % (0-12); NEUTROPHILS # (AUTO) 5.1 10^3/uL (1.8-7.8); NEUTROPHILS % (AUTO) 78 % (42-75); PLATELET COUNT 158 10^3/uL (130-400); WHITE BLOOD COUNT 6.5 10^3/uL (4.3-11.0)
[2023-08-10 11:43] LABS: ALBUMIN 4.1 GM/DL (3.2-4.5); CHLORIDE 109 MMOL/L (98-107); POTASSIUM 3.2 MMOL/L (3.6-5.0); SODIUM 146 MMOL/L (135-145)
[2023-08-10 11:44] LABS: CALCIUM 9.9 MG/DL (8.5-10.1)
[2023-08-10 11:45] LABS: GLUCOSE 85 MG/DL (70-105); TOTAL PROTEIN 6.9 GM/DL (6.4-8.2)
[2023-08-10] MEDS ORDERED: ENOXAPARIN 80 MG/0.8 ML SYRINGE SC ONE (11:45)
[2023-08-10 11:46] LABS: CARBON DIOXIDE 27 MMOL/L (21-32)
[2023-08-10 11:47] LABS: BILIRUBIN,TOTAL 0.9 MG/DL (0.1-1.0); PROTHROMBIN TIME PATIENT 13.8 SEC (12.2-14.7)
[2023-08-10 11:49] LABS: ALKALINE PHOSPHATASE 77 U/L (40-136); CREATININE SERUM 1.77 MG/DL (0.60-1.30); GFR ESTIMATED 40
[2023-08-10 11:50] LABS: BUN/CREATININE RATIO 15
[2023-08-10 11:52] LABS: ALANINE AMINOTRANSFERASE 65 U/L (0-55); MAGNESIUM 2.4 MG/DL (1.6-2.4)
[2023-08-10 11:53] LABS: LIPASE 65 U/L (8-78)
--- NOTE | 2023-08-10 12:25 | Diagnostic Imaging Report ---
EXAMINATION: Chest 1 view HISTORY: SOB COMPARISON: 11/22/2022 FINDINGS: Stable mild enlargement of the cardiac silhouette. There is prominence of the pulmonary vasculature. There are mild interstitial opacities in the lung bases with possible trace pleural effusions bilaterally. No pneumothorax. The osseous structures are intact. IMPRESSION: 1. Cardiomegaly and pulmonary vascular congestion. 2. Bibasilar opacities with trace pleural effusions which could be seen with atelectasis or pneumonia. Dictated by: Dictated on workstation # [id number]
[2023-08-10] MEDS ORDERED: meTOprolol INJECTION 5 MG/5 ML VIAL IV ONE (12:30)
[2023-08-10] MEDS ORDERED: POTASSIUM CL 10MEQ/50ML IVPB 50 ML IV STA (12:32)
--- NOTE | 2023-08-10 12:39 | ED Cardiac General ---
History of Present Illness General Chief Complaint: Cardiac/General Problems Stated Complaint: ABNORMAL EKG Nursing Triage Note: PT AMBULATE TO ROOM 06 WITHOUT DIFFICULTY AFTER BEING SENT FROM PCP FOR ABNORMAL EKG. PT HAS HX OF AFIB AND HAD RECENT MED CHANGE. PT RECENTLY STOPPED TAKING METOPROLOL AND STARTED ON CLONIPINE. PT DENIES CHEST PAIN. Source: patient Exam Limitations: no limitations History of Present Illness Date Seen by Provider: Aug 10, 2023 Time Seen by Provider: 11:04 Initial Comments 73-year-old male with past medical history of paroxysmal A-fib, atrial tachycardia, CAD with stenting coming in as a referral after he had an irregular heart rate in clinic today. Dr. Ruiz sent him to get an EKG, and then he was referred to the ER. The patient feels palpitations at times, then he feels like his heart is stopping for a few seconds. Denies any chest pain, shortness of breath, abdominal pain, nausea, vomiting, diarrhea, fever, chills, weakness, or numbness associated with it. 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 Allergies and Home Medications Allergies Coded Allergies: lisinopril (Verified Allergy, Mild, 11/23/22) Patient Home Medication List Home Medication List Reviewed: Yes Amlodipine Besylate (Amlodipine Besylate) 10 Mg Tablet, 10 MG PO DAILY, (Reported) Entered as Reported by: JUDI CONTRERAS on 08/14/18 1234 Aspirin (Aspirin EC) 81 Mg Tablet.dr, 81 MG PO DAILY Prescribed by: ELA GONZÁLES on 11/23/22 0605 Clopidogrel Bisulfate (Clopidogrel) 75 Mg Tablet, 75 MG PO DAILY Prescribed by: ELA GONZÁLES on 11/23/22 0605 Loratadine (Claritin) 10 Mg Tablet, 10 MG PO DAILY PRN for ALLERGIES, (Reported) Entered as Reported by: ANSHUL LUJAN on 11/22/22 0804 Metoprolol Succinate (Metoprolol Succinate) 25 Mg Tab.er.24h, 50 MG PO DAILY, (Reported) Entered as Reported by: LAMBERT POSEY on 10/10/22 1519 Multivitamin (Multivitamin) 1 Each Tablet, 1 EACH PO DAILY, (Reported) Entered as Reported by: ANSHUL LUJAN on 11/22/22 0804 [place]-3/Dha/Epa/Fish Oil (Fish Oil 1,000 mg Softgel) 1,000 Mg (120 Mg-180 Mg) Capsule, 1,000 MG PO DAILY, (Reported) Entered as Reported by: ANSHUL LUJAN on 11/22/22 0804 Potassium Chloride (Potassium Chloride) 10 Meq Capsule.er, 30 MEQ PO DAILY, (Reported) Entered as Reported by: JUDI CONTRERAS on 11/27/19 1248 Rosuvastatin Calcium (Rosuvastatin Calcium) 20 Mg Tablet, 10 MG PO HS, (Reported) Entered as Reported by: ANSHUL LUJAN on 11/22/22 0804 Review of Systems Review of Systems Constitutional: No fever EENTM: No Symptoms Reported Respiratory: No Symptoms Reported Cardiovascular: See HPI Gastrointestinal: No Symptoms Reported Genitourinary: No Symptoms Reported Musculoskeletal: no symptoms reported Skin: no symptoms reported Psychiatric/Neurological: No Symptoms Reported Endocrine: No Symptoms Reported Hematologic/Lymphatic: No Symptoms Reported Past [id number]-Jfrseu-Uxrzpb Hx Patient Social History Tobacco Use?: No Smoking Status: Never a Smoker Smokeless Tobacco Frequency: Never a User Use of E-Cig and/or Vaping dev: No Substance use?: No Alcohol Use?: No Pt feels they are or have been: No Immunizations Up To Date PED Vaccines UTD: No First/Initial COVID19 Vaccinat: 2020 Second COVID19 Vaccination Romario: 2020 Third COVID19 Vaccination Date: 2020 Seasonal Allergies Seasonal Allergies: Yes Past Medical History Surgeries: Yes (umb hernia,colon resection, COLONOSCOPY) Tonsillectomy Respiratory: No (asthma as a child) Currently Using CPAP: No Cardiac: Yes (hx of low potassium) High Cholesterol, Hypertension Neurological: No Concussion Reproductive Disorders: No Genitourinary: No Gastrointestinal: Yes Abdominal Hernia, Gastroesophageal Reflux, Polyps Musculoskeletal: Yes Arthritis Endocrine: No HEENT: Yes (glasses) Cataract Cancer: No Psychosocial: No Integumentary: No Blood Disorders: No Family Medical History Cardiovascular disease G8 BROTHER Dementia 19 MOTHER Diabetes mellitus G8 BROTHER FH: Crohn's disease 19 FATHER Hypertension G8 BROTHER Myocardial infarction G8 BROTHER Thyroid disease 19 MOTHER Physical Exam Vital Signs Vital Signs - First Documented 08/10/23 11:06 Temp 36.4 Pulse 144 Resp 16 B/P (MAP) 146/115 (125) O2 Delivery Room Air Capillary Refill : Less Than 3 Seconds Height, Weight, BMI Height: 6'1.00" Weight: 185lbs. 8.0oz. [id number]; 25.00 BMI Method:Stated General Appearance: No Apparent Distress, WD/WN HEENT: PERRL/EOMI, Normal ENT Inspection, Pharynx Normal Neck: Full Range of Motion, Normal Inspection, Non Tender, Supple Respiratory: Chest Non Tender, Lungs Clear, Normal Breath Sounds, No Accessory Muscle Use, No Respiratory Distress Cardiovascular: Normal Peripheral Pulses, Other (Intermittently tachycardic and regular followed by bradycardic) Gastrointestinal: Normal Bowel Sounds, Non Tender, Soft; No Distended, No Guarding Extremity: Normal Capillary Refill, Normal Inspection, Normal Range of Motion, Non Tender, No Calf Tenderness, Pedal Edema Neurologic/Psychiatric: Alert, No Motor/Sensory Deficits, Normal Mood/Affect Skin: Normal Color, Warm/Dry Progress/Results/Core Measures Results/Orders Lab Results Laboratory Tests Test 08/10/23 11:21 Range/Units White Blood Count 6.5 4.3-11.0 10^3/uL Red Blood Count 5.27 4.30-5.52 10^6/uL Hemoglobin 15.7 13.3-17.7 g/dL Hematocrit 48 40-54 % Mean Corpuscular Volume 91 80-99 fL Mean Corpuscular Hemoglobin 30 25-34 pg Mean Corpuscular Hemoglobin Concent 33 32-36 g/dL Red Cell Distribution Width 15.2 H 10.0-14.5 % Platelet Count 158 130-400 10^3/uL Mean Platelet Volume 12.4 H 9.0-12.2 fL Immature Granulocyte % (Auto) 1 % Neutrophils (%) (Auto) 78 H 42-75 % Lymphocytes (%) (Auto) 11 L 12-44 % Monocytes (%) (Auto) 8 0-12 % Eosinophils (%) (Auto) 2 0-10 % Basophils (%) (Auto) 1 0-10 % Neutrophils # (Auto) 5.1 1.8-7.8 10^3/uL Lymphocytes # (Auto) 0.7 L 1.0-4.0 10^3/uL Monocytes # (Auto) 0.5 0.0-1.0 10^3/uL Eosinophils # (Auto) 0.1 0.0-0.3 10^3/uL Basophils # (Auto) 0.1 0.0-0.1 10^3/uL Immature Granulocyte # (Auto) 0.0 0.0-0.1 10^3/uL Prothrombin Time 13.8 12.2-14.7 SEC INR Comment 1.0 0.8-1.4 Activated Partial Thromboplast Time 31 24-35 SEC Sodium Level 146 H 135-145 MMOL/L Potassium Level 3.2 L 3.6-5.0 MMOL/L Chloride Level 109 H 98-107 MMOL/L Carbon Dioxide Level 27 21-32 MMOL/L Anion Gap 10 5-14 MMOL/L Blood Urea Nitrogen 26 H 7-18 MG/DL Creatinine 1.77 H 0.60-1.30 MG/DL Estimat Glomerular Filtration Rate 40 BUN/Creatinine Ratio 15 Glucose Level 85 70-105 MG/DL Calcium Level 9.9 8.5-10.1 MG/DL Corrected Calcium 9.8 8.5-10.1 MG/DL Magnesium Level 2.4 1.6-2.4 MG/DL Total Bilirubin 0.9 0.1-1.0 MG/DL Aspartate Amino Transf (AST/SGOT) 38 H 5-34 U/L Alanine Aminotransferase (ALT/SGPT) 65 H 0-55 U/L Alkaline Phosphatase 77 40-136 U/L Troponin I < 0.028 <0.028 NG/ML B-Type Natriuretic Peptide 2140.1 H <100.0 PG/ML Total Protein 6.9 6.4-8.2 GM/DL Albumin 4.1 3.2-4.5 GM/DL Lipase 65 8-78 U/L My Orders Orders - SCOTTY SONI MD Ed Iv/Invasive Line Start (08/10/23 11:18) Ekg Tracing (08/10/23 11:18) Bnp Brandi (08/10/23 11:34) Cbc And Automated Diff (08/10/23 11:34) Comprehensive Metabolic Panel (08/10/23 11:34) Lipase (08/10/23 11:34) Magnesium (08/10/23 11:34) Protime With Inr (08/10/23 11:34) Partial Thromboplastin Time (08/10/23 11:34) Troponin I Brandi (08/10/23 11:34) Chest 1 View, Ap/Pa Only (08/10/23 11:34) Enoxaparin Injection (Enoxaparin Injecti (08/10/23 11:45) Ekg Tracing (08/10/23 11:43) Ekg Tracing (08/10/23 11:43) Ekg Tracing (08/10/23 11:43) Potassium Cl 10meq/50ml Ivpb (Kcl 10 Meq (08/10/23 12:32) Potassium Chloride (Tablet) (Potassium C (08/10/23 12:45) Ceftriaxone Iv/Im (Ceftriaxone Iv/Im) (08/10/23 12:45) Doxycycline Hyclate Tablet (Doxycycline (08/10/23 12:32) Medications Given in ED Current Medications Medications Dose Ordered Sig/Sindi Route Start Time Stop Time Status Last Admin Dose Admin Ceftriaxone Sodium 1000 mg/ Sodium Chloride 50 ml @ 100 mls/hr ONCE ONCE IV 08/10/23 12:45 08/10/23 13:14 DC 08/10/23 13:01 100 MLS/HR Enoxaparin Sodium 80 mg ONCE ONCE SC 08/10/23 11:45 08/10/23 11:46 DC 08/10/23 11:49 80 MG Potassium Chloride 40 meq ONCE ONCE PO 08/10/23 12:45 08/10/23 12:46 DC 08/10/23 13:02 40 MEQ Vital Signs/I&O 08/10/23 11:06 Temp 36.4 Pulse 144 Resp 16 B/P (MAP) 146/115 (125) O2 Delivery Room Air Blood Pressure Mean: 125 Progress Progress Note : Progress Note 73-year-old male with above history coming in due to irregular heart rate. On arrival, EKG was immediately obtained showing an atrial tachycardia. He had significant pauses roughly 3 seconds long every 10 to 20 seconds. Patient felt palpitations and felt his heart pausing between. Blood pressure was always appropriate and not concerning. Because of this, did not want to give adenosine or any type of beta-kamini or calcium channel kamini. An IV was placed and basic labs were obtained including cardiac biomarkers. His creatinine is 1.7 which is around his baseline, troponin negative, elevated BNP. Chest x-ray with potentially some patchy opacities on my interpretation. He will be given ceftriaxone and doxycycline as well. Potassium is slightly low so will be given IV and p.o. potassium. I contacted the blueprint machine operator, Dr. Neal, he is concern for tachybradycardia syndrome. He recommended against any medications at this time, specifically did not want us to give a beta kamini, calcium channel kamini, or adenosine. He recommended keeping the patient hooked up and ready to externally pace if needed, and a pacemaker semi-emergently. Unfortunately, he is unable to place a pacemaker in this facility. Contacted Dr. Gonzáles, who would not be able to place one until at least Sunday. At this point, Dr. Neal recommended transferring the patient. I contacted [facility], and they accepted the patient to [facility] for transfer. Initial ECG Impression Date: Aug 10, 2023 Initial ECG Impression Time: 11:19 Initial ECG Rate: 133 Comment atrial tachycardia with PVCs, no STEMI EKG : EKG Time: 11:39 Rate: 120 Comment Atrial tachycardia with pauses, PVCs, no STEMI Diagnostic Imaging Diagonstic Imaging: Xray (chest) Comments [facility], [place] NAME: PATRICK MORRISON [facility] REC#: [id number] PT STATUS: REG ER : 1950 PHYSICIAN: SCOTTY SONI MD ADMIT DATE: 08/10/23/ER Signed Date of Exam:08/10/23 CHEST 1 VIEW, AP/PA ONLY EXAMINATION: Chest 1 view HISTORY: SOB COMPARISON: 11/22/2022 FINDINGS: Stable mild enlargement of the cardiac silhouette. There is prominence of the pulmonary vasculature. There are mild interstitial opacities in the lung bases with possible trace pleural effusions bilaterally. No pneumothorax. The osseous structures are intact. IMPRESSION: 1. Cardiomegaly and pulmonary vascular congestion. 2. Bibasilar opacities with trace pleural effusions which could be seen with atelectasis or pneumonia. Dictated by: Dictated on workstation # [id number] Dict: 08/10/23 1222 Trans: 08/10/231227 [facility] [id number] Interpreted by: ZBIGNIEW TRUJILLO DO Electronically signed by: ZBIGNIEW TRUJILLO DO 08/10/238 Departure Impression Primary Impression: Tachy-shauna syndrome Additional Impression: Opacities of both lungs present on chest x-ray Disposition: XF [facility] Condition: Stable Admissions Decision to Admit/Date: Aug 10, 2023 Time/Decision to Admit Time: 12:30 Transfer Transfer Reason: Exceeds level of care (needs interventional cardiology with pacemaker placement, no pacemaker placement available in our facility until next week) Transfer Progress Notes Called [facility] at 13:41, no beds available Called [facility] at 13:43, they called back at 13:57 and have no pacemaker availability at this time Called [facility] at 13:58, they accept transfer to [facility]. Transfer Facility: [facility] Departure-Patient Inst. Referrals: DONAVON RUIZ DO (PCP/Family) Primary Care Physician SCOTTY SONI MD Aug 10, 2023 12:39
[2023-08-10] MEDS ORDERED: POTASSIUM CHLORIDE 20 MEQ TABLET PO ONE (12:45)
[2023-08-10] MEDS ORDERED: cefTRIAXone IV/IM 1,000 MG in NS (IVPB) 50 ML 50 ML IV ONE (12:45)
--- NOTE | 2023-08-10 13:16 | Consultation-Cardiology ---
HPI-Cardiology Cardiology Consultation Date of Consultation 08/10/23 Date of Admission Time Seen by Provider: 12:30 Indication: tachycardia HPI Patient is a 73-year-old male with a history of CAD status post PCI to the LAD with a 2.75 x 18 mm Skypoint CORINE in November 2022, nonsustained ventricular tachycardia, paroxysmal atrial tachycardia with heart rates up to 160 bpm, severe bradycardia with an escape junctional rhythm, hypertension, hyperlipidemia, mild bilateral carotid artery stenosis, family history of CAD, chronic renal insufficiency, obstructive sleep apnea on BiPAP who presents for evaluation after encouragement by his primary care physician. Patient states that he went to see his primary care physician today and he recommended that the patient come into the emergency room for evaluation. In the emergency room he was found to be tachycardic with a regular rhythm up to the 140s with pauses up up to 3 seconds in the junctional beat. In that setting, cardiology was consulted to aid in management. This appears to be consistent with tachybradycardia syndrome. Patient reports that he used to be on Toprol XL 100 mg p.o. daily and this was decreased to Toprol XL 50 mg p.o. daily and subsequently discontinued approximately 3 weeks prior by his primary internal corrosion specialist, Dr. Gonzáles, secondary to bradycardic episodes with heart rates down into the 30s. He denies any chest discomfort, shortness of breath, lightheadedness/dizziness, presyncope, syncope, PND, orthopnea. He has stable to improvement in lower extremity edema. He states that he can feel the pauses and can feel intermittent palpitations. There was initial concern that this represented atrial fibrillation with rapid ventricular response but on follow-up evaluation, this is more consistent with an atrial tach and tachybradycardia syndrome with pauses of up to 3 seconds. Home Medications & Allergies Allergies: Coded Allergies: lisinopril (Verified Allergy, Mild, 11/23/22) Home Medication List Reviewed: Yes [id number] Hx Patient Social History Smoking Status: Never a Smoker 2nd Hand Smoke Exposure: No Recent Hopitalizations: No Alcohol Use?: No Immunizations Up To Date Date of Pneumonia Vaccine: Sep 19, 2016 Date of Influenza Vaccine: Aug 16, 2022 Past Medical History PAST MEDICAL HISTORY: CAD status post PCI to the LAD with a 2.75 x 18 mm Skypoint CORINE in November 2022 nonsustained ventricular tachycardia paroxysmal atrial tachycardia with heart rates up to 160 bpm severe bradycardia with an escape junctional rhythm hypertension hyperlipidemia mild bilateral carotid artery stenosis family history of CAD chronic renal insufficiency obstructive sleep apnea on BiPAP SOCIAL HISTORY: Tobacco: Denies EtOH: Denies Illicit: Denies Caffeine: Reports occasional decaf. Family Medical History Family Medical Hx Brother with pacemaker and stents Family History: Cardiovascular disease G8 BROTHER Dementia 19 MOTHER Diabetes mellitus G8 BROTHER FH: Crohn's disease 19 FATHER Hypertension G8 BROTHER Myocardial infarction G8 BROTHER Thyroid disease 19 MOTHER Review of Systems-General Review of Systems Constitutional: No fever Musculoskeletal: no symptoms reported Skin: no symptoms reported Psychiatric/Neurological: No Symptoms Reported All Other Systems Reviewed Negative Unless Noted: Yes (All systems were reviewed and are negative except for what is been described in HPI) ECG Impression ECG Comment ECG she demonstrates atrial tachycardia heart rates up to 140 bpm and intermittent pauses. Review of telemetry demonstrates atrial tachycardia up to 150 bpm with call intermittent pauses as long as 3 seconds Physical Exam Physical Exam Vital Signs Vital Signs - First Documented 08/10/23 11:06 Temp 36.4 Pulse 144 Resp 16 B/P (MAP) 146/115 (125) O2 Delivery Room Air Capillary Refill : Less Than 3 Seconds Height, Weight, BMI Height: 6'1.00" Weight: 185lbs. 8.0oz. 84.434684pl; 25.00 BMI Method:Stated General Appearance: No Apparent Distress, WD/WN HEENT: PERRL/EOMI, Normal ENT Inspection, Pharynx Normal Neck: Full Range of Motion, Normal Inspection, Non Tender, Supple Respiratory: Chest Non Tender, Lungs Clear, Normal Breath Sounds, No Accessory Muscle Use, No Respiratory Distress Cardiovascular: Normal Peripheral Pulses, Other (Intermittently tachycardic and regular followed by bradycardic) Gastrointestinal: Normal Bowel Sounds, Non Tender, Soft; No Distended, No Guarding Extremity: Normal Capillary Refill, Normal Inspection, Normal Range of Motion, Non Tender, No Calf Tenderness, Pedal Edema Neurologic/Psychiatric: Alert, No Motor/Sensory Deficits, Normal Mood/Affect Skin: Normal Color, Warm/Dry Comments Gen: NAD, resting comfortably; A+oX3 Neck: No bruits, no JVD Lungs: Normal breath sounds, good air movement. no wheezing rales or rhonchi. CV: nl s1/s2; no murmurs gallops or rubs.Tachycardic, regular with intermittent pauses. . Abd: Soft nontender nondistended, no hepatosplenomegaly, positive bowel sounds.; Ext: 2+ radial and DP pulses; no c-c, wwp, 1+ BLE edema A/P-Cardiology Assessment/Plan 73-year-old male with a history of CAD status post PCI to the LAD with a 2.75 x 18 mm Skypoint CORINE in November 2022, nonsustained ventricular tachycardia, paroxysmal atrial tachycardia with heart rates up to 160 bpm, severe bradycardia with an escape junctional rhythm, hypertension, hyperlipidemia, mild bilateral carotid artery stenosis, family history of CAD, chronic renal insufficiency, obstructive sleep apnea on BiPAP who presents for evaluation after encouragement by his primary care physician, Now found to have atrial tachycardia with heart rates up to the 140s and pauses of up to 3 seconds, consistent with tachybradycardia syndrome. Relatively asymptomatic at this point. 1. Atrial tachycardia: Ideally would like to start him on some form of rate controlling agent but given his tachybradycardia syndrome this is contraindicat ed at this point time. Ultimate solution would be permanent pacemaker implantation. We will keep patient in-house in the ICU for close monitoring until permanent pacemaker can be implanted. No need for anticoagulation at this point time. Continue his current cardiotonic regimen. 2. CAD status post PCI: Continue his cardiotonic regimen which includes amlodipine 5 mg p.o. daily, aspirin 81 mg p.o. daily, clonidine 0.1 mg p.o. twice daily, Plavix 75 mg p.o. daily, Lasix 20 mg p.o. daily. 3. Tachybradycardia syndrome: Permanent pacemaker implantation in the coming days. ICU for close monitoring. Hold on any ashkan agents. No need for anticoagulation at this point time. Ensure pacer pads in place. Low threshold to implant temporary pacing wire via the right internal jugular vein if needed 4. Disposition: ICU for close monitoring. Permanent pacemaker prior to discharge. There will be gaps in cardiology coverage over the weekend, and as such, if permanent pacemaker can be placed today, recommend transfer to outside facility. Clinical Quality Measures AMI/AHF: ASA po Prior to arrival: SIVAKUMAR Estevez MD Aug 10, 2023 13:16
[2023-08-10 15:38] VITALS: BP 140/106
== END 2023-08-10 15:38 | disposition short-term general hospital (02) ==
LOC: EDUNIT# 11:01 → ER 11:02
DX: I49.5 Sick sinus syndrome (principal); R91.8 Other nonspecific abnormal finding of lung field; I48.91 Unspecified atrial fibrillation; E87.6 Hypokalemia; Z79.899 Other long term (current) drug therapy
CPT/HCPCS: 36415; 71045; 80053; 83690; 83735; 83880; 84484; 85025; 85610; 85730; 93005; 96361; 96365; 96372

== ENCOUNTER → 2023-08-10 | Outpatient (CLI) | payer MEDICARE, OTHER ==
[~2023-08-10] MED LIST changes: -POTA10CA44 PO; +POTA10CA84 PO; -ROSU20TA32 PO; +ROSU20TA73 PO
== END ==
LOC: CARD 10:36
PROVIDERS: ATTEND Family Medicine
DX: I49.9 Cardiac arrhythmia, unspecified (principal)
CPT/HCPCS: 93005

== ENCOUNTER → 2023-09-04 | Outpatient (CLI) | payer MEDICARE, OTHER ==
--- NOTE | 2023-09-04 16:01 | Diagnostic Imaging Report ---
PROCEDURE: US Renal Bilateral. TECHNIQUE: Multiple real-time grayscale images were obtained over the kidneys in various projections bilaterally. INDICATION: Renal failure Right kidney measures 10.9 x 5.8 x 6.4 cm. There is grade 3 hydronephrosis of the right kidney. There are no calculi seen. Left kidney measures 10.9 x 4.5 x 5.5 cm. There is a 3 cm cyst on the inferior pole of left kidney. There is no hydronephrosis. Urinary bladder had a prevoid volume of 99 mL and postvoid volume of 27 mL. Left ureteral jet was seen. The right ureteral jet was not seen. The prostate is enlarged. There are several small calculi seen in the gallbladder. IMPRESSION: Right hydronephrosis. Enlarged prostate, cholecystolithiasis. Dictated by: Dictated on workstation # [id number]
== END ==
LOC: RAD 12:19
PROVIDERS: ATTEND Internal Medicine Nephrology
DX: K80.20 Calculus of gallbladder without cholecystitis without obstruction (principal); I12.9 Hypertensive chronic kidney disease with stage 1 through stage 4 chronic kidney disease, or unspecified chronic kidney disease; N18.32 Chronic kidney disease, stage 3b; N13.30 Unspecified hydronephrosis; N40.0 Benign prostatic hyperplasia without lower urinary tract symptoms
CPT/HCPCS: 76770